=== PATIENT | female | born 1960 | race Caucasian/White ===

== ENCOUNTER 2016-06-25 05:47 | Emergency (ER) | payer OTHER ==
[2016-06-25 06:29] VITALS: BP 116/85; PULSE 74; TEMP 97.6; BMI 23.0
[2016-06-25] MEDS ORDERED: ACETAMINOPHEN/CAFFEINE/BUTALBITAL 1 TAB PO ONE (06:29)
--- NOTE | 2016-06-25 06:29 | PDOC ---
History of Present Illness - History of Present Illness Initial Comments: 06/25/16 06:30 The patient is a 56 year old female with history of migraines who presents to the ED complaining of 4 days of persistent headaches, consistent with her migraine headaches. She states she has been taking migraine medication ( including Topamax and Fiorecet) at home without relief of her pain. She reports she ran out of Fiorecet. The patient denies focal weakness or numbness or tingling. She denies nausea, vomiting, or diarrhea. She denies chest pain or shortness of breath. She denies fever or chills. <Frannie Arreguin - Last Filed: 06/25/16 06:35> - General History Source: Patient <Jerry Garay - Last Filed: 06/25/16 06:36> - General Chief Complaint: Migraine Headache Stated Complaint: MIGRAINE Time Seen by Provider: 06/25/16 06:18 Past History <Frannie Arreguin - Last Filed: 06/25/16 06:35> - Past Medical History Asthma: Yes COPD: Yes GI Disorders: Yes (IBS, Constipation) HTN: Yes Hypercholesterolemia: Yes Psychiatric Problems: Yes Suicide Attempt (Hx): No Thyroid Disease: Yes (MIGRAINES HEADACHE) - Surgical History Abdominal Surgery: Yes (EXP LAP, ADHESIONS) Cardiac Surgery: Yes - Immunization History Immunization Up to Date: Yes - Psycho/Social/Smoking Cessation Hx Anxiety: Yes Suicidal Ideation: No Smoking Status: Yes Smoking History: Current every day smoker Have you smoked in the past 12 months: Yes Number of Cigarettes Smoked Daily: 20 Information on smoking cessation initiated: No 'Breaking Loose' booklet given: 07/27/14 Hx Alcohol Use: No Drug/Substance Use Hx: No Substance Use Type: None Hx Substance Use Treatment: No <Jerry Garay - Last Filed: 06/25/16 06:36> - Past Medical History Allergies/Adverse Reactions: Allergies Allergy/AdvReac Type Severity Reaction Status Date / Time hydromorphone HCl Allergy Verified 06/25/16 06:10 [From Dilaudid] ketorolac tromethamine Allergy Itching Verified 06/25/16 06:10 [From Toradol] naproxen [From Naprosyn] Allergy Hives Verified 06/25/16 06:10 pregabalin [From Lyrica] Allergy DRUG Verified 06/25/16 06:10 INTERACTION quetiapine fumarate Allergy Hives Verified 06/25/16 06:10 [From Seroquel] trazodone Allergy Itching Verified 06/25/16 06:10 varenicline tartrate Allergy DRUG Verified 06/25/16 06:10 [From Chantix] INTERACTION Home Medications: Ambulatory Orders Clonazepam [Klonopin] 2 mg PO TID 07/02/12 Lamotrigine [Lamictal] 200 mg PO BID 07/02/12 Venlafaxine HCl ER [Effexor Xr -] 150 mg PO BID 07/02/12 Lisinopril [Prinivil] 20 mg PO DAILY 04/08/15 Polyethylene Glycol 3350 [Miralax (For Daily Use) -] 17 gm PO DAILY 04/08/15 Simvastatin [Zocor -] 40 mg PO HS 04/08/15 Aspirin [Aspirin EC] 81 mg PO DAILY 08/17/15 Aspirin [ASA -] 81 mg PO DAILY 11/17/15 Omeprazole [Prilosec] 40 mg PO DAILY 11/17/15 Topiramate [Topamax] 200 mg PO HS 11/17/15 Acetaminophen/Caffeine/Butalb [Fioricet -] 1 tab PO Q6H PRN #28 tablet MDD 4 04/18 Ondansetron [Zofran -] 4 mg PO TID PRN #14 tablet 12/14/15 Acetaminophen W/ Codeine #3 [Tylenol # 3 -] 1 tab PO Q6H PRN #5 tablet MDD 3 Butalbit/Acetamin/Caff/Codeine [Fioricet-Cod 27-198-24-30 Cap] 1 each PO BID PRN #5 capsule MDD 3 12/15/15 Codeine/Butalbital/ASA/Caffein [Fiorinal with Codeine #3 Cap] 1 each PO TID PRN #5 capsule MDD 3 12/15/15 Butalbit/Acetamin/Caff/Codeine [Fioricet-Cod 47-726-40-30 Cap] 1 each PO QID # 20 capsule MDD 4 06/25/16 Review of Systems - Review of Systems Able to Perform ROS?: Yes Comments:: 06/25/16 06:33 GENERAL/CONSTITUTIONAL: No fever or chills. No weakness. HEAD, EYES, EARS, NOSE AND THROAT: No change in vision. No ear pain or discharge. No sore throat CARDIOVASCULAR: No chest pain or shortness of breath. RESPIRATORY: No cough, wheezing, or hemoptysis. GASTROINTESTINAL: No nausea, vomiting, diarrhea or constipation. GENITOURINARY: No dysuria, frequency, or change in urination. MUSCULOSKELETAL: No joint or muscle swelling or pain. No neck or back pain. SKIN: No rash NEUROLOGIC: +Headache. No vertigo, loss of consciousness, or change in strength/ sensation. ENDOCRINE: No increased thirst. No abnormal weight change. HEMATOLOGIC/LYMPHATIC: No anemia, easy bleeding, or history of blood clots. ALLERGIC/IMMUNOLOGIC: No hives or skin allergy. <Frannie Arreguin - Last Filed: 06/25/16 06:35> *Physical Exam - Vital Signs Last Vital Signs Temp Pulse Resp BP Pulse Ox 97.6 F 74 14 116/85 100 06/25/16 06:10 06/25/16 06:10 06/25/16 06:10 06/25/16 06:10 06/25/16 06:10 - Physical Exam Comments: 06/25/16 06:34 GENERAL: Awake, alert, and fully oriented, in no acute distress HEAD: No signs of trauma EYES: PERRLA, EOMI, sclera anicteric, conjunctiva clear ENT: Auricles normal inspection, hearing grossly normal, nares patent, oropharynx clear without exudates. Moist mucosa NECK: Normal ROM, supple, no lymphadenopathy, JVD, or masses LUNGS: Breath sounds equal, clear to auscultation bilaterally. No wheezes, and no crackles HEART: Regular rate and rhythm, normal S1 and S2, no murmurs, rubs or gallops ABDOMEN: Soft, nontender, normoactive bowel sounds. No guarding, no rebound. No masses EXTREMITIES: Normal range of motion, no edema. No clubbing or cyanosis. No cords, erythema, or tenderness NEUROLOGICAL: Cranial nerves II through XII grossly intact. Normal speech, normal gait. Sensation intact throughout. Motor strength 5/5x all 4 extremities. SKIN: Warm, Dry, normal turgor, no rashes or lesions noted. <Frannie Arreguin - Luis Miguel Filed: 06/25/16 06:35> - Vital Signs Last Vital Signs Temp Pulse Resp BP Pulse Ox 97.6 F 74 14 116/85 100 06/25/16 06:10 06/25/16 06:10 06/25/16 06:10 06/25/16 06:10 06/25/16 06:10 <Jerry Garay - Last Filed: 06/25/16 06:36> Medical Decision Making - Medical Decision Making 06/25/16 06:36 Dr. Garay: The scribe's documentation has been prepared under my direction and personally reviewed by me in its entirery. I confirm that the note above accurately reflects all work, treatment, procedures, and medical decision making performed by me. <Jerry Garay - Last Filed: 06/25/16 06:36> *DC/Admit/Observation/Transfer - Attestations Scribe Attestion: 06/25/16 06:35 Documentation prepared by Frannie Arreguin, acting as medical service technician for Jerry Garay DO. <Frannie Arreguin - Last Filed: 06/25/16 06:35> - Discharge Dispostion Admit: No <Jerry Garay - Last Filed: 06/25/16 06:36> Diagnosis at time of Disposition: Headache Migraine Qualifiers: Migraine type: other Status migrainosus presence: without status migrainosus Intractability: not intractable Qualified Code(s): G43.809 - Other migraine, not intractable, without status migrainosus - Discharge Dispostion Disposition: HOME Condition at time of disposition: Stable - Prescriptions Prescriptions: Butalbit/Acetamin/Caff/Codeine [Fioricet-Cod 06-813-29-30 Cap] 1 each PO QID # 20 capsule MDD 4 - Referrals Referrals: Dominick Boykin [Primary Care Provider] - Will Stone MD [Staff Physician] - Tressa Parra MD [Staff Physician] - - Patient Instructions Printed Discharge Instructions: DI for Migraine
[2016-06-25] MEDS ORDERED: ACETAMINOPHEN/CAFFEINE/BUTALBITAL 1 TAB ONE (06:36)
== END 2016-06-25 07:03 | disposition home or self-care (01) ==
LOC: JER 05:47
DX: G43.809 Other migraine, not intractable, without status migrainosus (principal); I10 Essential (primary) hypertension; J45.909 Unspecified asthma, uncomplicated; J44.9 Chronic obstructive pulmonary disease, unspecified; E78.00 Pure hypercholesterolemia, unspecified
CPT/HCPCS: 99281-25

== ENCOUNTER 2016-06-28 02:21 | Emergency (ER) | payer OTHER ==
[2016-06-28 03:02] VITALS: BP 150/90; PULSE 89; TEMP 97.8; BMI 23.0
--- NOTE | 2016-06-28 03:38 | PDOC ---
History of Present Illness - History of Present Illness Initial Comments: 06/28/16 05:37 The patient is a 56 year old female with a PMHx of asthma, COPD, IBS, constipation, HTN, HLD, migraines who presents to the ED with a headache. Patient requested pain medication to relieve her headache. She reports she is seeing a neurologist and a sec reporting consultant. She is scheduled for endoscopy and colonoscopy in 4 days, so her neurologist told her to resolve GI issues before neuro issues. She states the headache is unbearable and that her head is pounding. The patient denies chest pain, shortness of breath, palpitations and dizziness. The patient denies fever, chills, nausea, vomiting, diarrhea, and constipation. <Saadia Oliva - Last Filed: 06/28/16 05:37> <Johnna Kay - Last Filed: 06/29/16 00:30> - General Chief Complaint: Headache Stated Complaint: HEADACHE Time Seen by Provider: 06/28/16 03:24 Past History <Saadia Oliva - Last Filed: 06/28/16 05:37> - Past Medical History Asthma: Yes COPD: Yes GI Disorders: Yes (IBS, Constipation) HTN: Yes Hypercholesterolemia: Yes Psychiatric Problems: Yes Suicide Attempt (Hx): No Thyroid Disease: Yes (MIGRAINES HEADACHE) - Surgical History Abdominal Surgery: Yes (EXP LAP, ADHESIONS) Cardiac Surgery: Yes - Immunization History Immunization Up to Date: Yes - Psycho/Social/Smoking Cessation Hx Anxiety: Yes Suicidal Ideation: No Smoking Status: Yes Smoking History: Never smoked Have you smoked in the past 12 months: No Number of Cigarettes Smoked Daily: 10 Information on smoking cessation initiated: No 'Breaking Loose' booklet given: 07/27/14 Hx Alcohol Use: No Drug/Substance Use Hx: No Substance Use Type: None Hx Substance Use Treatment: No <Johnna Kay - Last Filed: 06/29/16 00:30> - Past Medical History Allergies/Adverse Reactions: Allergies Allergy/AdvReac Type Severity Reaction Status Date / Time hydromorphone HCl Allergy Verified 06/25/16 06:10 [From Dilaudid] ketorolac tromethamine Allergy Itching Verified 06/25/16 06:10 [From Toradol] naproxen [From Naprosyn] Allergy Hives Verified 06/25/16 06:10 pregabalin [From Lyrica] Allergy DRUG Verified 06/25/16 06:10 INTERACTION quetiapine fumarate Allergy Hives Verified 06/25/16 06:10 [From Seroquel] trazodone Allergy Itching Verified 06/25/16 06:10 varenicline tartrate Allergy DRUG Verified 06/25/16 06:10 [From Chantix] INTERACTION Home Medications: Ambulatory Orders Clonazepam [Klonopin] 2 mg PO TID 07/02/12 Lamotrigine [Lamictal] 200 mg PO BID 07/02/12 Venlafaxine HCl ER [Effexor Xr -] 150 mg PO BID 07/02/12 Lisinopril [Prinivil] 20 mg PO DAILY 04/08/15 Simvastatin [Zocor -] 40 mg PO HS 04/08/15 Omeprazole [Prilosec] 40 mg PO DAILY 11/17/15 Review of Systems - Review of Systems Comments:: 06/28/16 05:37 GENERAL/CONSTITUTIONAL: No fever or chills. No weakness. HEAD, EYES, EARS, NOSE AND THROAT: No change in vision. No ear pain or discharge. No sore throat. CARDIOVASCULAR: No chest pain or shortness of breath. RESPIRATORY: No cough, wheezing, or hemoptysis. GASTROINTESTINAL: No nausea, vomiting, diarrhea or constipation. GENITOURINARY: No dysuria, frequency, or change in urination. MUSCULOSKELETAL: No joint or muscle swelling or pain. No neck or back pain. SKIN: No rash NEUROLOGIC: +headache. No vertigo, loss of consciousness, or change in strength/ sensation. ENDOCRINE: No increased thirst. No abnormal weight change. HEMATOLOGIC/LYMPHATIC: No anemia, easy bleeding, or history of blood clots. ALLERGIC/IMMUNOLOGIC: No hives or skin allergy. <Saadia Oliva - Last Filed: 06/28/16 05:37> *Physical Exam - Vital Signs Last Vital Signs Temp Pulse Resp BP Pulse Ox 97.8 F 89 20 150/90 97 06/28/16 03:01 06/28/16 03:01 06/28/16 03:01 06/28/16 03:01 06/28/16 03:01 - Physical Exam Comments: 06/28/16 05:38 GENERAL: Awake, alert, and fully oriented, in no acute distress HEAD: No signs of trauma EYES: PERRLA, EOMI, sclera anicteric, conjunctiva clear ENT: Auricles normal inspection, hearing grossly normal, nares patent, oropharynx clear without exudates. Moist mucosa NECK: Normal ROM, supple, no lymphadenopathy, JVD, or masses LUNGS: Breath sounds equal, clear to auscultation bilaterally. No wheezes, and no crackles HEART: Regular rate and rhythm, normal S1 and S2, no murmurs, rubs or gallops ABDOMEN: Soft, nontender, normoactive bowel sounds. No guarding, no rebound. No masses EXTREMITIES: Normal range of motion, no edema. No clubbing or cyanosis. No cords, erythema, or tenderness NEUROLOGICAL: Cranial nerves II through XII grossly intact. Normal speech, normal gait SKIN: Warm, Dry, normal turgor, no rashes or lesions noted. <Saadia Oliva - Last Filed: 06/28/16 05:37> - Vital Signs Last Vital Signs Temp Pulse Resp BP Pulse Ox 97.8 F 89 20 150/90 97 06/28/16 03:01 06/28/16 03:01 06/28/16 03:01 06/28/16 03:01 06/28/16 03:01 <Johnna Kay - Last Filed: 06/29/16 00:30> Medical Decision Making - Medical Decision Making 06/29/16 00:30 Pt comes requesting percocet. I gave her 12 pills in a prescription. Exam is normal, but she demands that she is in pain. <Johnna Kay - Last Filed: 06/29/16 00:30> *DC/Admit/Observation/Transfer - Attestations Scribe Attestion: 06/28/16 05:38 Documentation prepared by Saadia Oliva, acting as medical appliance maker for Johnna Kay MD. <Saadia Oliva - Last Filed: 06/28/16 05:37> - Discharge Dispostion Admit: No <Johnna Kay - Last Filed: 06/29/16 00:30> Diagnosis at time of Disposition: Headache, chronic daily - Discharge Dispostion Disposition: HOME Condition at time of disposition: Stable - Referrals Referrals: Dominick Boykin [Primary Care Provider] - - Patient Instructions Printed Discharge Instructions: DI for Chronic Pain -- Adult
== END 2016-06-28 03:55 | disposition home or self-care (01) ==
LOC: JER 02:21
DX: R51 Headache (principal); I10 Essential (primary) hypertension; E78.00 Pure hypercholesterolemia, unspecified; J44.9 Chronic obstructive pulmonary disease, unspecified; J45.909 Unspecified asthma, uncomplicated; K58.9 Irritable bowel syndrome, unspecified
CPT/HCPCS: 99282-25

== ENCOUNTER 2016-10-19 13:23 | Emergency (ER) | payer OTHER ==
[2016-10-19 13:40] VITALS: BP 114/65; PULSE 102; TEMP 97.8; BMI 23.1
--- NOTE | 2016-10-19 15:00 | PDOC ---
History of Present Illness - General Chief Complaint: Migraine Headache Stated Complaint: MIGRAINE Time Seen by Provider: 10/19/16 14:36 History Source: Patient Exam Limitations: No Limitations - History of Present Illness Initial Comments: 10/19/16 15:26 Patient well known to this emergency Department with complaints of severe headache pain. Patient suffers from chronic migraines, is on a number of medications including narcotic medications. States is treated by headache specialist at [facility] with her primary physician being . Questing oxycodone 7.5 mg tablets as she says Dr. Boykin treats her #30 tablets on a monthly basis. Timing/Duration: reports: waxing and waning Severity: Yes: moderate Past History - Travel Traveled outside of the country in the last 30 days: No Close contact w/someone who was outside of country & ill: No - Past Medical History Allergies/Adverse Reactions: Allergies Allergy/AdvReac Type Severity Reaction Status Date / Time hydromorphone HCl Allergy Verified 10/19/16 13:31 [From Dilaudid] ketorolac tromethamine Allergy Itching Verified 10/19/16 13:31 [From Toradol] naproxen [From Naprosyn] Allergy Hives Verified 10/19/16 13:31 pregabalin [From Lyrica] Allergy DRUG Verified 10/19/16 13:31 INTERACTION quetiapine fumarate Allergy Hives Verified 10/19/16 13:31 [From Seroquel] trazodone Allergy Itching Verified 10/19/16 13:31 varenicline tartrate Allergy DRUG Verified 10/19/16 13:31 [From Chantix] INTERACTION Home Medications: Ambulatory Orders Clonazepam [Klonopin] 2 mg PO TID 07/02/12 Lamotrigine [Lamictal] 200 mg PO BID 07/02/12 Venlafaxine HCl ER [Effexor Xr -] 150 mg PO BID 07/02/12 Lisinopril [Prinivil] 20 mg PO DAILY 04/08/15 Simvastatin [Zocor -] 40 mg PO HS 04/08/15 Omeprazole [Prilosec] 40 mg PO DAILY 11/17/15 Asthma: Yes COPD: Yes GI Disorders: Yes (IBS, Constipation) HTN: Yes Hypercholesterolemia: Yes Psychiatric Problems: Yes Suicide Attempt (Hx): No Thyroid Disease: Yes (MIGRAINES HEADACHE) - Surgical History Abdominal Surgery: Yes (EXP LAP, ADHESIONS) Cardiac Surgery: Yes - Immunization History Immunization Up to Date: Yes - Psycho/Social/Smoking Cessation Hx Anxiety: Yes Suicidal Ideation: No Smoking Status: Yes Smoking History: Current every day smoker Have you smoked in the past 12 months: No Number of Cigarettes Smoked Daily: 20 Information on smoking cessation initiated: No 'Breaking Loose' booklet given: 07/27/14 Hx Alcohol Use: No Drug/Substance Use Hx: No Substance Use Type: None Hx Substance Use Treatment: No Neuro Specific PMHX - Complaint Specific PMHX Glaucoma: No Migraine: Yes Review of Systems - Review of Systems Able to Perform ROS?: Yes Is the patient limited Swiss proficient: Yes Constitutional: Yes: Symptoms Reported, See HPI, Malaise. No: Fever HEENTM: Yes: See HPI Respiratory: Yes: See HPI. No: Symptoms reported ABD/GI: No: Symptoms Reported Musculoskeletal: No: Symptoms Reported Integumentary: Yes: Symptoms Reported Neurological: Yes: Symptoms reported, See HPI, Headache, Numbness Psychiatric: Yes: Depression All Other Systems: Reviewed and Negative *Physical Exam - Vital Signs Last Vital Signs Temp Pulse Resp BP Pulse Ox 97.8 F 102 H 20 114/65 96 10/19/16 13:24 10/19/16 13:24 10/19/16 13:24 10/19/16 13:24 10/19/16 13:24 - Physical Exam Comments: 10/19/16 15:01 General Appearance: Yes: Nourished, Appropriately Dressed, Mild Distress HEENT: positive: GABRIELA, Normal ENT Inspection, TMs Normal, Pharynx Normal Neck: positive: Supple. negative: Tender, Lymphadenopathy (R), Lymphadenopathy (L) Respiratory/Chest: positive: Lungs Clear, Normal Breath Sounds Cardiovascular: positive: Regular Rate Gastrointestinal/Abdominal: positive: Normal Bowel Sounds, Soft. 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 Agreed to give 2 tablets of Percocet today *DC/Admit/Observation/Transfer Diagnosis at time of Disposition: Chronic headache Qualifiers: Headache type: unspecified Intractability: not intractable Qualified Code(s): R51 - Headache - Discharge Dispostion Disposition: HOME Condition at time of disposition: Stable Admit: No - Referrals Referrals: Dominick Boykin [Primary Care Provider] - Will Stone MD [Staff Physician] - - Patient Instructions Printed Discharge Instructions: Migraine -- Adult Additional Instructions: Rest, drink lots of fluids: Teas, water, soups, hydrate well Steamy showers Avoid contact with others until fevers and cough resolved Lots of handwashing and good hygiene Continue [id number] medications for symptomatic relief Tylenol for fever and pain Use prescribed headache meds Followup with private physician in one to 2 days as needed Return to emergency department for worsened symptoms, fevers, dehydration - Post Discharge Activity Work/School Note: Back to Work
[2016-10-19] MEDS ORDERED: OXYCODONE/APAP 5/325MG COMBO TABLET ONE (15:04)
== END 2016-10-19 15:15 | disposition home or self-care (01) ==
LOC: JER 13:23 → JERFT 13:23
DX: G43.909 Migraine, unspecified, not intractable, without status migrainosus (principal); J44.9 Chronic obstructive pulmonary disease, unspecified; I10 Essential (primary) hypertension; E78.00 Pure hypercholesterolemia, unspecified; J45.909 Unspecified asthma, uncomplicated; F17.210 Nicotine dependence, cigarettes, uncomplicated
CPT/HCPCS: 99281-25

== ENCOUNTER → 2016-11-09 | Emergency (ER) | payer OTHER ==
[~2016-11-09] MED LIST: ACETAMINOPHEN 1000 MG/100 ML VIAL (NON FORMULARY) IVPB ONE; ONDANSETRON 4 MG/2 ML VIAL IVPUSH ONE; ONDANSETRON 4 MG/2 ML VIAL ONE
[2016-11-09 01:35] VITALS: BP 104/70; PULSE 72; TEMP 97.6; BMI 23.9
[2016-11-09 02:05] LABS: URINE APPEARANCE CLEAR; URINE BILIRUBIN NEGATIVE (NEGATIVE); URINE BLOOD NEGATIVE (NEGATIVE); URINE COLOR STRAW; URINE GLUCOSE (UA) NEGATIVE (NEGATIVE); URINE KETONE NEGATIVE (NEGATIVE); URINE LEUK ESTERASE NEGATIVE (NEGATIVE); URINE NITRITE NEGATIVE (NEGATIVE); URINE PROTEIN NEGATIVE (NEGATIVE); URINE UROBILINOGEN NEGATIVE E.U./dl (0.2-1.0)
[2016-11-09 02:22] LABS: BASOPHIL 0.8 % (0-2.0); EOSINOPHIL 1.5 % (0-4.5); MCH 28.5 pg (25.7-33.7); MCHC 32.6 g/dl (32.0-36.0); MEAN CELL VOLUME 87.5 fl (80-96); MEAN PLT VOLUME 8.9 fl (7.5-11.1); NEUTROPHILS 45.3 % (42.8-82.8); PLATELET COUNT 250 K/MM3 (134-434); RDW 13.2 % (11.6-15.6); WHITE BLOOD COUNT 5.9 K/mm3 (4.0-10.0)
[2016-11-09 03:06] LABS: ALBUMIN 3.6 g/dl (3.4-5.0); ANION GAP 7 (8-16); CALCIUM 9.1 mg/dL (8.5-10.1); CO2 25 mmol/L (21-32); CREATININE 0.7 mg/dL (0.55-1.02); GLUCOSE,RANDOM 85 mg/dL (74-106); SGPT/ALT 19 U/L (12-78)
[2016-11-09 03:07] LABS: ALK PHOS 148 U/L (45-117); BILIRUBIN,TOTAL 0.2 mg/dL (0.2-1.0); TOT PROT 6.9 g/dl (6.4-8.2)
[2016-11-09 03:10] LABS: SGOT/AST 15 U/L (15-37)
--- NOTE | 2016-11-09 03:10 | PDOC ---
History of Present Illness - General Chief Complaint: Pain Stated Complaint: ABDOMINAL PAIN Time Seen by Provider: 11/09/16 01:57 - History of Present Illness Initial Comments: 11/09/16 02:57 CHIEF COMPLAINT: abdominal pain HISTORY OF PRESENT ILLNESS: 56 yo F with hx of presents to ED with abdominal pain and nausea. Patient states the pain is so bad that she cannot walk, but prior to exam she was seen ambulating to bathroom without evidence of pain. Patient states "she usually gets Dilaudid or morphine" for this pain. No recent travel or sick contacts. PAST MEDICAL HISTORY: Denies past medical history FAMILY HISTORY: Denies SOCIAL HISTORY:Denies tobacco, alcohol, illicit drug use. SURGICAL HISTORY: Denies ALLERGIES: No known drug allergies REVIEW OF SYSTEMS General/Constitutional: Denies fever or chills. Cardiovascular: Denies chest pain or shortness of breath. Respiratory: Denies cough, wheezing, or hemoptysis. Gastrointestinal: Abdominal pain, nausea. Denies vomiting, diarrhea or constipation. Genitourinary: Denies dysuria, frequency, or change in urination. Musculoskeletal: Denies joint or muscle swelling or pain. Denies neck or back pain. Skin and breasts: Denies rash or easy bruising. PHYSICAL EXAM General Appearance: Well-appearing, appropriately dressed. No apparent distress. HEENT: EOMI, PERRLA Respiratory/Chest: Lungs CTAB. Cardiovascular: RRR. S1, S2. Gastrointestinal/Abdominal: Generalized tenderness on palpation. Normal bowel sounds. Abdomen soft, non-distended. No tenderness or rebound tenderness. No organomegaly, pulsatile mass, guarding, hernia, hepatomegaly, splenomegaly. Integumentary: Appropriate color, dry, warm. 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 Fully oriented, alert. Appropriate mood/affect. Motor strength 5/5. No appreciable EOM palsy, facial droop or sensory deficit. Past History - Past Medical History Allergies/Adverse Reactions: Allergies Allergy/AdvReac Type Severity Reaction Status Date / Time hydromorphone HCl Allergy Verified 11/09/16 01:54 [From Dilaudid] ketorolac tromethamine Allergy Itching Verified 11/09/16 01:54 [From Toradol] naproxen [From Naprosyn] Allergy Hives Verified 11/09/16 01:54 pregabalin [From Lyrica] Allergy DRUG Verified 11/09/16 01:54 INTERACTION quetiapine fumarate Allergy Hives Verified 11/09/16 01:54 [From Seroquel] trazodone Allergy Itching Verified 11/09/16 01:54 varenicline tartrate Allergy DRUG Verified 11/09/16 01:54 [From Chantix] INTERACTION Home Medications: Ambulatory Orders Clonazepam [Klonopin] 2 mg PO TID 07/02/12 Lamotrigine [Lamictal] 200 mg PO BID 07/02/12 Venlafaxine HCl ER [Effexor Xr -] 150 mg PO BID 07/02/12 Lisinopril [Prinivil] 20 mg PO DAILY 04/08/15 Simvastatin [Zocor -] 40 mg PO HS 04/08/15 Omeprazole [Prilosec] 40 mg PO DAILY 11/17/15 Oxycodone HCl/Acetaminophen [Percocet 5-325 mg Tablet] 1 tab PO DAILY 11/09/16 Asthma: Yes COPD: Yes GI Disorders: Yes (IBS, Constipation) HTN: Yes Hypercholesterolemia: Yes Psychiatric Problems: Yes Suicide Attempt (Hx): No Thyroid Disease: Yes (MIGRAINES HEADACHE) - Surgical History Abdominal Surgery: Yes (EXP LAP, ADHESIONS) Cardiac Surgery: Yes - Immunization History Immunization Up to Date: Yes - Psycho/Social/Smoking Cessation Hx Anxiety: Yes Suicidal Ideation: No Smoking Status: Yes Smoking History: Unknown if ever smoked Have you smoked in the past 12 months: No Number of Cigarettes Smoked Daily: 10 Information on smoking cessation initiated: No 'Breaking Loose' booklet given: 07/27/14 Hx Alcohol Use: No Drug/Substance Use Hx: No Substance Use Type: None Hx Substance Use Treatment: No Abd/GI Specific PMHX - Complaint Specific PMHX GERD: No GI Ulcer Disease: No *Physical Exam - Vital Signs Last Vital Signs Temp Pulse Resp BP Pulse Ox 97.6 F 72 14 104/70 98 11/09/16 01:33 11/09/16 01:33 11/09/16 01:33 11/09/16 01:33 11/09/16 01:42 ED Treatment Course - LABORATORY CBC & Chemistry Diagram: 11/09/16 02:13 11/09/16 02:03 - ADDITIONAL ORDERS Additional order review: Laboratory Results 11/09/16 11/09/16 02:13 01:45 WBC 5.9 RBC 4.83 Hgb 13.8 Hct 42.2 MCV 87.5 MCH 28.5 MCHC 32.6 RDW 13.2 Plt Count 250 MPV 8.9 Neutrophils % 45.3 D Lymphocytes % 45.7 H D Monocytes % 6.7 Eosinophils % 1.5 Basophils % 0.8 Urine Color Straw Urine Appearance Clear Urine pH 6.0 Urine Protein Negative Urine Glucose (UA) Negative Urine Ketones Negative Urine Blood Negative Urine Nitrite Negative Urine Bilirubin Negative Urine Urobilinogen Negative Ur Leukocyte Esterase Negative 11/09/16 02:13 RBC 4.83 MCV 87.5 MCHC 32.6 RDW 13.2 MPV 8.9 Neutrophils % 45.3 D Lymphocytes % 45.7 H D Monocytes % 6.7 Eosinophils % 1.5 Basophils % 0.8 Medical Decision Making - Medical Decision Making 56 yo F with hx of presents to ED with abdominal pain and nausea. -CBc, CMP, lipase -UA, UCx Labs unremarkable. Patient exhibiting drug-seeking behavior, as she persistently requested Dilaudid or morphine to "take the edge off." [facility] [employer] referenced. Patient currently has multiple scripts for narcotics including Dilley, will give Tylenol IVPB. Patient became agitated when told she would be getting Tylenol. When patient was advised she would not be getting Dilaudid, she became verbally abusive to myself and other staff with threatening behavior. Patient self-removed IV and eloped after being told she would not be receiving any Dilaudid or morphine in the ER. *DC/Admit/Observation/Transfer Diagnosis at time of Disposition: Opiate dependence Qualifiers: Substance use status: with unspecified opioid-induced disorder Qualified Code(s ): F11.29 - Opioid dependence with unspecified opioid-induced disorder - Discharge Dispostion Disposition: ELOPED - Referrals Referrals: Dominick Boykin [Primary Care Provider] -
== END | disposition left against medical advice (07) ==
LOC: JER 01:09
DX: Z53.21 Procedure and treatment not carried out due to patient leaving prior to being seen by health care provider (principal)
CPT/HCPCS: 36415; 80053; 81003; 83690; 85025; 99282-25

== ENCOUNTER 2019-07-14 20:15 | Inpatient (IN) | payer OTHER ==
--- NOTE | 2019-07-14 20:24 | PDOC ---
Rapid Medical Evaluation Medical Evaluation: Allergies Allergy/AdvReac Type Severity Reaction Status Date / Time hydromorphone HCl Allergy Verified 11/09/16 01:54 [From Dilaudid] ketorolac tromethamine Allergy Itching Verified 11/09/16 01:54 [From Toradol] naproxen [From Naprosyn] Allergy Hives Verified 11/09/16 01:54 pregabalin [From Lyrica] Allergy DRUG Verified 11/09/16 01:54 INTERACTION quetiapine fumarate Allergy Hives Verified 11/09/16 01:54 [From Seroquel] trazodone Allergy Itching Verified 11/09/16 01:54 varenicline tartrate Allergy DRUG Verified 11/09/16 01:54 [From Chantix] INTERACTION 07/14/19 20:20 Pt c/o: lower abd pain, urunary urgency, hx complicated uti pt on brief exam: lower abd tenderness, mild cva tenderness, vss pt ordered for: ua uc x, comp cbc Pt to proceed to the ED Discharge Disposition - Diagnosis Abdominal pain - Referrals - Patient Instructions - Post Discharge Activity
--- NOTE | 2019-07-14 21:37 | PDOC ---
History of Present Illness - General Chief Complaint: Pain, Acute Stated Complaint: UTI Time Seen by Provider: 07/14/19 21:35 History Source: Patient - History of Present Illness Initial Comments: 07/14/19 21:57 Ms. Kilpatrick is a 59 y/o woman w/hx HTN, HLD, depression, prior opiate use disorder p/w worsening flank pain, suprapubic pain, and dysuria. She reports being seen at [facility] on 06/11/2019 and found to have UTI as well as a CT scan indicative of 3mm L renal stone at that time. She was started on ciprofloxacin as well as tamsulosin, but her dysuria persisted despite a second course of cipro after completion of the first, started by her PCP. She reports chills last night, no measured fevers at home. She presents today as she continues to have dysuria and her pain has worsened, 9/10, achine pain, localized to her bilateral flanks and suprapubic region. She reports taking 325mg Acetaminophen at approx 1400 without improvement of pain. She denies nausea, vomiting, chest pain, shortness of breath, weakness, confusion. Past History - Past Medical History Allergies/Adverse Reactions: Allergies Allergy/AdvReac Type Severity Reaction Status Date / Time hydromorphone HCl Allergy Verified 11/09/16 01:54 [From Dilaudid] ketorolac tromethamine Allergy Itching Verified 11/09/16 01:54 [From Toradol] naproxen [From Naprosyn] Allergy Hives Verified 11/09/16 01:54 pregabalin [From Lyrica] Allergy DRUG Verified 11/09/16 01:54 INTERACTION quetiapine fumarate Allergy Hives Verified 11/09/16 01:54 [From Seroquel] trazodone Allergy Itching Verified 11/09/16 01:54 varenicline tartrate Allergy DRUG Verified 11/09/16 01:54 [From Chantix] INTERACTION Home Medications: Ambulatory Orders Clonazepam [Klonopin] 2 mg PO TID 07/02/12 Lamotrigine [Lamictal] 200 mg PO BID 07/02/12 Venlafaxine HCl ER [Effexor Xr -] 150 mg PO BID 07/02/12 Lisinopril [Prinivil] 20 mg PO DAILY 04/08/15 Simvastatin [Zocor -] 40 mg PO HS 04/08/15 Omeprazole [Prilosec] 40 mg PO DAILY 11/17/15 Oxycodone HCl/Acetaminophen [Percocet 5-325 mg Tablet] 1 tab PO DAILY 11/09/16 Tamsulosin HCl [Flomax] 0.4 mg PO DAILY 07/14/19 Asthma: Yes COPD: Yes GI Disorders: Yes (IBS, Constipation) HTN: Yes Hypercholesterolemia: Yes Psychiatric Problems: Yes Thyroid Disease: Yes (MIGRAINES HEADACHE) - Surgical History Abdominal Surgery: Yes (EXP LAP, ADHESIONS) Cardiac Surgery: Yes - Immunization History Immunization Up to Date: Yes - Psycho Social/Smoking Cessation Hx Smoking Status: Yes Smoking History: Current every day smoker Have you smoked in the past 12 months: Yes Number of Cigarettes Smoked Daily: 10 Information on smoking cessation initiated: No 'Breaking Loose' booklet given: 07/27/14 Hx Alcohol Use: No Drug/Substance Use Hx: No Substance Use Type: None Hx Substance Use Treatment: No Review of Systems - Review of Systems Able to Perform ROS?: Yes Comments:: 07/14/19 22:17 GENERAL/CONSTITUTIONAL: Chills. No fever. No weakness. HEAD, EYES, EARS, NOSE AND THROAT: No change in vision. No ear pain or dischar ge. No sore throat. CARDIOVASCULAR: No chest pain or shortness of breath RESPIRATORY: No cough, wheezing, or hemoptysis. GASTROINTESTINAL: No nausea, vomiting, diarrhea or constipation. GENITOURINARY: Dysuria. No frequency, or change in urination. MUSCULOSKELETAL: Flank pain. No joint or muscle swelling or pain. No neck pain. SKIN: No rash NEUROLOGIC: No headache, vertigo, loss of consciousness, or change in strength/sensation. ENDOCRINE: No increased thirst. No abnormal weight change HEMATOLOGIC/LYMPHATIC: No anemia, easy bleeding, or history of blood clots. ALLERGIC/IMMUNOLOGIC: No hives or skin allergy. *Physical Exam - Vital Signs Last Vital Signs Temp Pulse Resp BP Pulse Ox 98.5 F 96 H 19 151/86 95 07/14/19 20:17 07/14/19 20:17 07/14/19 20:17 07/14/19 20:17 07/14/19 20:17 - Physical Exam 07/14/19 22:18 GENERAL: Awake, alert, and fully oriented, in no acute distress HEAD: No signs of trauma, normocephalic, atraumatic EYES: PERRLA, EOMI, sclera anicteric, conjunctiva clear ENT: Auricles normal inspection, hearing grossly normal, nares patent, oropharynx clear without exudates. Moist mucosa NECK: Normal ROM, supple, no lymphadenopathy, JVD, or masses LUNGS: No distress, speaks full sentences, clear to auscultation bilaterally HEART: Regular rate and rhythm, normal S1 and S2, no murmurs, rubs or gallops, peripheral pulses normal and equal bilaterally. ABDOMEN: Diffuse mild tenderness, most severe in LLQ and suprapubic region. L CVA tenderness. Soft, normoactive bowel sounds. No guarding, no rebound. No masses EXTREMITIES : Normal inspection, Normal range of motion, no edema. No clubbing or cyanosis NEUROLOGICAL: Cranial nerves II through XII grossly intact. Normal speech, normal gait, no focal sensorimotor deficits SKIN: Warm, Dry, normal turgor, no rashes or lesions noted ED Treatment Course - LABORATORY CBC & Chemistry Diagram: 07/14/19 21:20 07/14/19 21:20 Medical Decision Making - Medical Decision Making 07/14/19 22:24 59F w/hx HTN, HLD, renal stone and UTI on 06/23 p/w ongoing dysuria, flank pain and CVA tenderness on exam, and UTI tx failure on multiple courses abx concerning for impacted stone vs ascending infection. Ddx includes renal colic, abx resistant UTI. Plan: CBC CMP UA Urine culture CT spiral renal stone to eval for impacted/infected stone Ofirmev 1g IV Morphine 4mg IV Blood cultures x2 EKG CXR 1L NS IV Dispo: Admit 07/14/19 23:51 CT abdomen pelvis - non-obstructing stone in renal pelvis, no hydronephrosis. Plan for admission for pyelonephritis/failure of outpatient treatment. Case discussed with admitting team. Patient admitted to Dr. Figueroa. Discharge - Discharge Information Problems reviewed: Yes Clinical Impression/Diagnosis: Cystitis, Renal stone, Pyelonephritis Condition: Stable - Admission Yes - Follow up/Referral - Patient Discharge Instructions - Post Discharge Activity
[2019-07-14 21:50] LABS: EPI CELLS 4 /HPF (0-5/HPF); HYALINE CASTS 1 /lpf (0-8); URINE APPEARANCE CLEAR; URINE BACTERIA 11 /hpf (NEGATIVE); URINE BILIRUBIN 2+ (NEGATIVE); URINE COLOR ORANGE; URINE GLUCOSE (UA) NEGATIVE (NEGATIVE); URINE KETONE NEGATIVE (NEGATIVE); URINE LEUK ESTERASE 1+ (NEGATIVE); URINE NITRITE POSITIVE (NEGATIVE); URINE PROTEIN TRACE (NEGATIVE); URINE WBC 11 /hpf (0-5)
[2019-07-14] MEDS ORDERED: SODIUM CHLORIDE 0.9% 1000 ML INFUS.BAG IV ONE (21:53)
[2019-07-14] MEDS ORDERED: ACETAMINOPHEN 1000 MG/100 ML VIAL (NON FORMULARY) IVPB ONE (21:54)
[2019-07-14] MEDS ORDERED: CEFTRIAXONE 1,000 MG in DEXTROSE 5%-WATER - 50 ML IVPB ONE (21:54)
[2019-07-14 21:58] LABS: BASO % 0.5 % (0-2.0); EOS % 1.7 % (0-4.5); HEMATOCRIT 42.2 % (32.4-45.2); LYMPH % 41.4 % (8-40); MCH 29.4 pg (25.7-33.7); MCHC 33.1 g/dl (32.0-36.0); MEAN CELL VOLUME 88.8 fl (80-96); MEAN PLT VOLUME 9.2 fl (7.5-11.1); MONO % 9.1 % (3.8-10.2); NEUT % 47.3 % (42.8-82.8); PLATELET COUNT 259 K/MM3 (134-434); RBC 4.75 M/mm3 (3.60-5.2); RDW 14.1 % (11.6-15.6); WHITE BLOOD COUNT 7.1 K/mm3 (4.0-10.0)
[2019-07-14] MEDS ORDERED: morphine CARPU-JECT 4 MG/1 ML DISP.SYRIN IVPUSH ONE (22:05)
[2019-07-14] MEDS ORDERED: CEFTRIAXONE 1 GM/50 ML BAG ONE (22:06)
[2019-07-14] MEDS ORDERED: ACETAMINOPHEN INJECTION 100 ML IVPB ONE (22:06)
[2019-07-14 22:13] LABS: ALBUMIN 3.6 g/dl (3.4-5.0); ALK PHOS 145 U/L (45-117); ANION GAP 5 MMOL/L (8-16); BILIRUBIN,TOTAL < 0.1 mg/dL (0.2-1); BLOOD UREA NITROGEN 14.3 mg/dL (7-18); CALCIUM 9.5 mg/dL (8.5-10.1); CHLORIDE 107 mmol/L (98-107); CO2 29 mmol/L (21-32); CREATININE 0.6 mg/dL (0.55-1.3); GLUCOSE,RANDOM 115 mg/dL (74-106); POTASSIUM 4.3 mmol/L (3.5-5.1); SGOT/AST 13 U/L (15-37); SGPT/ALT 22 U/L (13-61); SODIUM 141 mmol/L (136-145); TOT PROT 6.5 g/dl (6.4-8.2)
[2019-07-14] MEDS ORDERED: morphine SULFATE 4 MG/ML VIAL ONE (22:19)
--- NOTE | 2019-07-14 22:54 | PDOC ---
Documentation entered by Elham Dueñas SCRIBE, acting as scribe for Yisel Law DO. Yisel Law DO: This documentation has been prepared by the thuyibe, Elham Dueñas SCRIBE, under my direction and personally reviewed by me in its entirety. I confirm that the documentation accurately reflects all work, treatment, procedures, and medical decision making performed by me. Attending Attestation - Resident Resident Name: Chris Pinedo - ED Attending Attestation I have performed the following: I have examined & evaluated the patient, The case was reviewed & discussed with the resident, I agree w/resident's findings & plan, Exceptions are as noted - HPI HPI: 07/14/19 22:55 The patient is a 59-year-old female with a past medical history significant for HTN, HLD, and depression who presents to the emergency department with flank pain and lower abdominal pain. The patient presents with persistent bilateral flank pain that radiates down the lower abdominal region. The patient reports the pain worsened and decided to be evaluated. The patient reports associated symptoms of subjective fever and chills yesterday denies nausea or vomiting. The patient reports taking Tylenol for the symptoms without relief. The patient reports on June 11 she was seen at [facility] for supra abdominal and flank pain. The patient was diagnosed with a UTI, and her CTA showed a 3mm nonobstructive stone in the kidney. The patient reports she was given Cipro and tamsulosin. The patient reports following up with PCP, who referred the patient to the ER for an ultrasound blast, denies following up at the ER. The patient reports making an appointment with a urologist (Dr. Jacome and Dr. Matos), but they are for the end of this month. - Physicial Exam PE: 07/14/19 23:01 GENERAL: Awake, alert, and fully oriented, in no acute distress HEAD: No signs of trauma EYES: PERRLA, EOMI, sclera anicteric, conjunctiva clear ENT: Auricles normal inspection, hearing grossly normal, nares patent, oropharynx clear without exudates. Moist mucosa NECK: Normal ROM, supple, no lymphadenopathy, JVD, or masses LUNGS: Breath sounds equal, clear to auscultation bilaterally. No wheezes, and no crackles HEART: Regular rate and rhythm. ABDOMEN: Soft, tenderness to suprapubic, left lower quadrant, left flank and left CVA. EXTREMITIES: Normal range of motion, no edema. No clubbing or cyanosis. No cords, erythema, or tenderness NEUROLOGICAL: Cranial nerves II through XII grossly intact. Normal speech, normal gait SKIN: Warm, Dry, normal turgor, no rashes or lesions noted. - Medical Decision Making 07/14/19 22:35 I, Dr. Yisel Law, DO, attest that this document has been prepared under my direction and personally reviewed by me in its entirety. I further attest, that it accurately reflects all work, treatment, procedures and medical decision-making performed by me. a/p: 59yo female with L flank pain that has been worsening x 1m -pt has been on cipro and was dx with a uti and renal stone at [place] in June -pt states dysuria and worsening flank pain -states subjective fevers/chills last night -pt denies n/v/d- but states decreased po intake recently -pt denies cp -concern for persistent uti, pyelo, or infected stone -will send labs, start iv abx, will send cultures, spiral ct -will monitor and reassess 07/14/19 22:54 pt with uti no elevated wbc cr normal 07/15/19 00:13 resident discussed the case with sheila who accepts pt to service pt with pyelo that failed outpt therapy Heart Score/ECG Review - ECG Intrepretation Comment:: 07/15/19 00:13 sinus at 76, nl axis, nl interval, no acute st/t wave findings Discharge - Discharge Information Problems reviewed: Yes Clinical Impression/Diagnosis: Cystitis, Renal stone, Pyelonephritis Condition: Fair - Admission Yes - Follow up/Referral - Patient Discharge Instructions - Post Discharge Activity
[2019-07-14] MEDS ORDERED: KETOROLAC TROMETHAMINE 15 MG/ML VIAL IVPUSH PRN (23:43)
[2019-07-14] MEDS ORDERED: ACETAMINOPHEN 325 MG TABLET (FP) PO PRN (23:48)
--- NOTE | 2019-07-14 23:50 | HP ---
CHIEF COMPLAINT: dysuria, suprapubic pain PCP: Dr. Boykin HISTORY OF PRESENT ILLNESS: 59F w/ pmhx of HTN/HLD, COPD, IBS, depression presents to the ED for complaints of 1 month hx of dysuria, suprapubic pain, and flank pain. Pt says she was hospitalized at [facility] on 06/11/19 after which she was prescribed Ciprofloxacin and Tamsulosin and advised to go to her PCP. At that time, she had a CTA done that showed a 3 mm non-obstructed stone. She then completed another tx of Cipro as an outpatient, however despite all antibiotic therapies, her symptoms of dysuria, flank pain and suprapubic pain persisted. She saw her PCP this week who then prescribed her Amoxicillin and advised her to go to the ED to get an "ultrasound blast". Additionally, she admits to urinary retention as well as bilateral flank pain, L > R. Last night she complained of fevers, and today she had chills all day. Denies any vaginal discharge, itchiness. Also denies any sexual contact for the past 6 years as her as she states her 6 years ago. Pt has not followed up with urologist in 4 years. ER course was notable for: (1) VS wnl, CBC wnl, BMP wnl, Alk P 145. UA showed +nitrite, 2+ bilirubin, 1+LE, WBC 11 (2) IV Ceftriaxone, Morphine, IV Tylenol given (3) CTAP (IOC read) showed no obstructive uropathy, non-obstructing L renal parenchymal stone; liver appears hyperdense Recent Travel: Denies PAST MEDICAL HISTORY: As per HPI PAST SURGICAL HISTORY: C-s Lysis of adhesions FAMILY HISTORY: Maternal aunt- DM/PVD Maternal grandmother- breast ca Paternal grandfather- CAD Social History: Smokin cig/day since 15 years old Alcohol: Denies Drugs: Denies Allergies hydromorphone HCl [From Dilaudid] Allergy (Verified 11/09/16 01:54) ketorolac tromethamine [From Toradol] Allergy (Verified 11/09/16 01:54) Itching naproxen [From Naprosyn] Allergy (Verified 11/09/16 01:54) Hives pregabalin [From Lyrica] Allergy (Verified 07/09/17 01:54) DRUG INTERACTION TAKES EFFEXOR quetiapine fumarate [From Seroquel] Allergy (Verified 11/09/16 01:54) Hives trazodone Allergy (Verified 11/09/16 01:54) Itching varenicline tartrate [From Chantix] Allergy (Verified 11/09/16 01:54) DRUG INTERACTION TAKES EFFEXOR HOME MEDICATIONS: Home Medications - RECONCILED Medication Instructions Recorded Clonazepam [Klonopin] 2 mg PO TID 07/02/12 Lamotrigine [Lamictal] 200 mg PO BID 07/02/12 Venlafaxine HCl ER [Effexor Xr -] 150 mg PO BID 07/02/12 Lisinopril [Prinivil] 20 mg PO DAILY 04/08/15 Simvastatin [Zocor -] 40 mg PO HS 04/08/15 Omeprazole [Prilosec] 40 mg PO DAILY 11/17/15 Oxycodone HCl/Acetaminophen 1 tab PO DAILY 11/09/16 [Percocet 5-325 mg Tablet] Tamsulosin HCl [Flomax] 0.4 mg PO DAILY 07/14/19 REVIEW OF SYSTEMS CONSTITUTIONAL: fever, chills Absent: diaphoresis, generalized weakness, malaise, loss of appetite, weight change HEENT: Absent: rhinorrhea, nasal congestion, throat pain, throat swelling, difficulty swallowing, mouth swelling, ear pain, eye pain, visual changes CARDIOVASCULAR: Absent: chest pain, syncope, palpitations, irregular heart rate, lightheadedness, peripheral edema RESPIRATORY: Absent: cough, shortness of breath, dyspnea with exertion, orthopnea, wheezing, stridor, hemoptysis GASTROINTESTINAL: Absent: abdominal pain, abdominal distension, nausea, vomiting, diarrhea, constipation, melena, hematochezia GENITOURINARY: dysuria, hesitancy, hematuria, flank pain Absent: , frequency, urgency, genital pain MUSCULOSKELETAL: Absent: myalgia, arthralgia, joint swelling, back pain, neck pain SKIN: Absent: rash, itching, pallor HEMATOLOGIC/IMMUNOLOGIC: Absent: easy bleeding, easy bruising, lymphadenopathy, frequent infections ENDOCRINE: Absent: unexplained weight gain, unexplained weight loss, heat intolerance, cold intolerance NEUROLOGIC: Absent: headache, focal weakness or paresthesias, dizziness, unsteady gait, seizure, mental status changes, bladder or bowel incontinence PSYCHIATRIC: Absent: anxiety, depression, suicidal or homicidal ideation, hallucinations. PHYSICAL EXAMINATION Vital Signs - 24 hr 07/14/19 20:17 Temperature 98.5 F Pulse Rate 96 H Respiratory 19 Rate Blood Pressure 151/86 O2 Sat by Pulse 95 Oximetry (%) GENERAL: Pleasant, well-appearing female, NAD. HEENT: AT/NC. EOMI. MMM. NECK: Normal range of motion, supple without lymphadenopathy, JVD, or masses. LUNGS: Scattered wheezes throughout. Symmetric chest rise. HEART: RRR. Normal S1, S2. No murmurs noted. ABDOMEN: Soft, nondistended. Mildly tender to palpation. No rebound tenderness or guarding. : Mild suprapubic tenderness. MUSCULOSKELETAL: Normal range of motion at all joints. No bony deformities or tenderness. Mild CVA tenderness, L > R. EXTREMITIES: No peripheral edema noted. NEUROLOGICAL: Cranial nerves II-XII intact. Normal speech. PSYCHIATRIC: Cooperative. Good eye contact. Appropriate mood and affect. SKIN: Warm, dry, normal turgor, no rashes or lesions noted, normal capillary refill. CBC, BMP 07/14/19 21:20 07/14/19 21:20 IMAGING: * Spiral CT: (IOC prelim read) showed no evid of obstructive uropathy, non- obstructing L renal parenchymal stone, no hydronephrosis, perinephric inflammation or urinary tract calculi; liver appears increased in density ASSESSMENT/PLAN: 59F w/ pmhx of HTN/HLD, COPD, IBS, depression presents to the ED for complaints of 1 month hx of dysuria, suprapubic pain, and flank pain admitted for UTI due to failed outpatient therapy. #UTI vs. ? Pyelonephritis; UA +nitrite, 1+LE, WBC 11 -Given IV Ceftriaxone x1 in ED. Will escalate to IV Zosyn 4.5 Q6H due to failed OP therapy on multiple abx -Spiral CT (IOC prelim read) showed no evid of obstructive uropathy, non-obstr ucting L renal parenchymal stone, no hydronephrosis, perinephric inflammation or urinary tract calculi; liver appears increased in density. Await final read. -Renal and bladder done; pending final read -Tamsulosin 0.4 -PO Tylenol, IV Morphine for pain -BCx, UCx ordered -Urology consult -ID consult #HTN/HLD; Stable. Cont home med: Simvastatin 40 HS, Lisinopril 20 #Hx of IBS; Cont home med: Miralax 17 gm, Senna #COPD; Current smoker. No acute exacerbation. Cont home med: Ellipta -Smoking cessation counseling #IBS; Stable. Cont home med: Miralax 17 gm QD #Hx of Depression; Stable. Sees Dr. Lila Calvillo as OP. Cont home med: Venlafaxine 150 AM, Lamictal 200 BID #Ppx GI: Cont home Protonix 40 QD DVT: Lovenox #FEN -PO hydration -recheck lytes in AM -Sodium-controlled diet Dispo -admit to med-surg Visit type - Emergency Visit Emergency Visit: Yes ED Registration Date: 07/14/19 Care time: The patient presented to the Emergency Department on the above date and was hospitalized for further evaluation of their emergent condition. - New Patient This patient is new to me today: Yes Date on this admission: 07/15/19 - Critical Care Critical Care patient: No ATTENDING PHYSICIAN STATEMENT I saw and evaluated the patient. I reviewed the resident's note and discussed the case with the resident. I agree with the resident's findings and plan as documented. SUBJECTIVE: OBJECTIVE: ASSESSMENT AND PLAN:
[2019-07-15] MEDS ORDERED: ACETAMINOPHEN 325 MG TABLET (FP) ONE (01:06)
--- NOTE | 2019-07-15 01:27 | PN ---
Teaching Attending Note Name of Resident: Nadeen Mcghee ATTENDING PHYSICIAN STATEMENT I saw and evaluated the patient. I reviewed the resident's note and discussed the case with the resident. I agree with the resident's findings and plan as documented. SUBJECTIVE: Patient is a 59 year old woman with a PMH of HTN, HLD, Depression, Left kidney stone, Tobacco use, Prior opiate use disorder and COPD presenting with worsening flank pain, suprapubic pain, and dysuria. She reports being seen at [facility] on 06/11/2019 and found to have UTI as well as a CT scan indicative of 3mm left renal stone at that time. She was started on Ciprofloxacin as well as Tamsulosin, but her dysuria persisted despite a second course of Cipro after completion of the first, started by her PCP. She reports chills last night, no measured fevers at home. She continues to have dysuria and her pain has worsened, 9/10, aching pain, localized to her bilateral flanks and suprapubic region. Also has a feeling of incomplete bladder emptying. She reports taking 325 mg Acetaminophen at about 1400 without improvement of pain. She denies nausea, vomiting, chest pain, shortness of breath, weakness, confusion. Not sexually active since she lost her 6 years ago. Denies alcohol abuse. No sick contacts or recent travels. OBJECTIVE: Alert Vital Signs Period Temp Pulse Resp BP Sys/Marie Pulse Ox Last 24 Hr 98.5 F 96 19 151/86 95 HEENT: No Jaundice, eye redness or discharge, PERRLA, EOMI. Normocephalic, atraumatic. External ears are normal and hearing is grossly intact. No nasal discharge. Neck: Supple, nontender. No palpable adenopathy or thyromegaly. No JVD Chest: Good effort. Clear to auscultation and percussion. Heart: Regular. No S3, rub or murmur Abdomen: Not distended, soft, flank and suprapubic tenderness; no HSM. No rebound or guarding. Normal bowel sounds. Ext: Peripheral pulses intact. No leg edema. Skin: Warm and dry. No petechiae, rash or ecchymosis. Neuro: Alert. Oriented x3. CN 2-12 grossly intact. Sensation grossly intact in all four extremities and DTR are symmetric. Psych: Appropriate mood and affect. Good insight. Current Medications Generic Name Dose Route Start Last Admin Trade Name Jose Mq PRN Reason Stop Dose Admin Acetaminophen 650 mg 07/14/19 23:48 07/15/19 01:13 Tylenol - PO 650 mg Q4H PRN Administration FEVER Atorvastatin Calcium 20 mg 07/15/19 22:00 Lipitor - PO HS [facility] Clonazepam 1 mg 07/15/19 01:52 Klonopin - PO TID PRN ANXIETY Enoxaparin Sodium 40 mg 07/15/19 10:00 Lovenox - SQ DAILY [facility] Piperacillin Sod/Tazobactam 100 mls @ 200 mls/hr 07/15/19 03:00 Sod 4.5 gm/ Dextrose IVPB Q6H-IV [facility] Protocol Piperacillin Sod/Tazobactam 100 mls @ 200 mls/hr 07/15/19 03:00 Sod 4.5 gm/ Dextrose IVPB 07/15/19 21:29 Q6H-IV [facility] Protocol Lamotrigine 200 mg 07/15/19 01:45 Lamictal - PO BID [facility] Lisinopril 20 mg 07/15/19 10:00 Prinivil PO DAILY [facility] Pantoprazole Sodium 40 mg 07/15/19 10:00 Protonix - PO DAILY [facility] Polyethylene Glycol 17 gm 07/15/19 10:00 Miralax (For Daily Use) - PO DAILY [facility] Tamsulosin HCl 0.4 mg 07/15/19 08:30 Flomax - PO DAILY@0830 [facility] Venlafaxine HCl 150 mg 07/15/19 07:00 Effexor Xr - PO AM [facility] Home Medications Medication Instructions Recorded Clonazepam [Klonopin] 1 mg PO TID PRN 07/02/12 Lamotrigine [Lamictal] 200 mg PO BID 07/02/12 Venlafaxine HCl ER [Effexor Xr -] 150 mg PO AM 07/02/12 Lisinopril [Prinivil] 20 mg PO DAILY 04/08/15 Simvastatin [Zocor -] 40 mg PO HS 04/08/15 Tamsulosin HCl [Flomax] 0.4 mg PO DAILY 07/14/19 Pantoprazole Sodium [Protonix] 40 mg PO DAILY 07/15/19 Polyethylene Glycol 3350 [Miralax 17 gm PO DAILY 07/15/19 (For Daily Use) -] Abnormal Lab Results 07/14/19 07/14/19 07/14/19 21:20 21:20 21:30 Lymphocytes % 41.4 H Anion Gap 5 L Random Glucose 115 H Total Bilirubin < 0.1 L AST 13 L Alkaline Phosphatase 145 H Urine Nitrite Positive H Urine Bilirubin 2+ H Ur Leukocyte Esterase 1+ H ASSESSMENT AND PLAN: 1. UTI/?Pyelonephritis - CT scan shows nonobstructing left kidney stone. Kidney/bladder sonogram being done for possible urinary retention. Sepsis workup done. Will treat with IV Zosyn pending culture report. EKG pending. Continue IV NS. Consult ID and Urology. Refer to Nephrology for outpatient workup to search for stone disease risk factor. Will continue comprehensive care for all of patients comorbid conditions. 2. Tobacco Use Counseled on risks associated with tobacco use. We will provide patient all the necessary assistance to facilitate smoking cessation and prescribe Nicotine patch. 3. Hypertension - Restart suitable outpatient antihypertensive drugs when clinically appropriate. Revise regimen to ensure [id number] excellent BP control and addiction counselor patient on the injurious effects of uncontrolled hypertension. Nonpharmacologic measures to control hypertension like weight loss, salt restriction and exercise discussed. Importance of adherence to treatment regimen and attainment of normotension emphasized. 4. DVT prophylaxis - Lovenox 40 mg SQ q 24 hours. 5. Advance directives - Full code
[2019-07-15] MEDS ORDERED: PATIENT'S OWN MEDICATION (NON-FORMULARY) (Clonazepam [Klonopin] 1 MG) PO PRN (01:35)
[2019-07-15] MEDS ORDERED: PIPERACILLIN/TAZOB 4.5 GM 4.5 GM/100 ML BAG IVPB ONE (02:18)
[2019-07-15] MEDS ORDERED: lamoTRIgine 25 MG TABLET ONE (02:21)
[2019-07-15] MEDS: PIPERACILLIN/TAZOB 4.5 GM 4.5 GM in DEXTROSE 5%-WATER 100 ML IVPB SCH ×3 (02:43→15:05)
[2019-07-15] MEDS ORDERED: PIPERACILLIN/TAZOB 4.5 GM 4.5 GM in DEXTROSE 5%-WATER 100 ML IVPB SCH (03:00)
[2019-07-15] MEDS ORDERED: SENNOSIDES 8.6MG TABLET (FP) PO SCH (03:22)
[2019-07-15] MEDS ORDERED: morphine CARPU-JECT 4 MG/1 ML DISP.SYRIN IVPUSH SCH (03:30)
[2019-07-15 03:41] VITALS: TEMP 98.3
[2019-07-15] MEDS ORDERED: MORPHINE SULFATE 2 MG/ML VIAL ONE (03:44)
[2019-07-15] MEDS ORDERED: SENNOSIDES 8.6MG TABLET (FP) PO ONE ×2 (03:45→03:47)
[2019-07-15] MEDS: MORPHINE SULFATE 2 MG/ML VIAL IVPUSH SCH ×2 (03:52→07:51)
[2019-07-15 04:44] VITALS: BMI 22.1
[2019-07-15] MEDS ORDERED: lamoTRIgine 100 MG TABLET PO SCH (05:47)
[2019-07-15] MEDS: clonazePAM 0.5 MG TABLET PO PRN ×2 (06:34→15:04)
[2019-07-15] MEDS ORDERED: VENLAFAXINE HCL 75 MG E.R. CAPSULES PO SCH (07:00)
[2019-07-15 07:55] LABS: HEMATOCRIT 39.8 % (32.4-45.2); HEMOGLOBIN 13.4 GM/dL (10.7-15.3); MCH 29.6 pg (25.7-33.7); MCHC 33.6 g/dl (32.0-36.0); PLATELET COUNT 226 K/MM3 (134-434); RBC 4.52 M/mm3 (3.60-5.2); RDW 13.8 % (11.6-15.6); WHITE BLOOD COUNT 8.1 K/mm3 (4.0-10.0)
[2019-07-15 08:19] LABS: BLOOD UREA NITROGEN 10.1 mg/dL (7-18); CALCIUM 9.4 mg/dL (8.5-10.1); CREATININE 0.7 mg/dL (0.55-1.3); POTASSIUM 4.7 mmol/L (3.5-5.1)
[2019-07-15] MEDS ORDERED: TAMSULOSIN HCL 0.4 MG CAP PO SCH (08:30)
[2019-07-15] MEDS ORDERED: POLYETHYLENE GLYCOL 3350 119 GM BTL PO SCH ×2 (10:00)
[2019-07-15] MEDS ORDERED: PATIENT'S OWN MEDICATION (NON-FORMULARY) (Umeclidinium Bromide [Incruse Ellipta] 62.5 MCG) IH SCH (10:00)
[2019-07-15] MEDS ORDERED: ENOXAPARIN NA (PORCINE) 40 MG/0.4 ML DISP.SYRIN SQ SCH (10:00)
[2019-07-15] MEDS ORDERED: PANTOPRAZOLE 40 MG TABLET PO SCH (10:00)
[2019-07-15] MEDS ORDERED: LISINOPRIL 20 MG TABLET (FP) PO SCH (10:00)
[2019-07-15] MEDS ORDERED: TIOTROPIUM BROMIDE 2.5 MCG (SPIRIVA) RESPIMAT INHALER IH SCH (10:00)
[2019-07-15] MEDS ORDERED: CEFTRIAXONE 1 GM in DEXTROSE 5%-WATER - 50 ML IVPB SCH (10:00)
--- NOTE | 2019-07-15 10:27 | PN ---
Progress Note (short form) - Note Progress Note: uncomplicated uti tiny non obstructing stone on us no surgical intervention at this time follow up as outpatient
[2019-07-15] MEDS ORDERED: oxyCODONE HCL 5 MG TABLET PO ONE (10:30)
[2019-07-15] MEDS ORDERED: DEXTROSE 5%-WATER 100 ML IVPB ONE ×2 (10:42→15:01)
[2019-07-15] MEDS ORDERED: PIPERACILLIN/TAZOBACTAM 4.5 GM VIAL IVPB ONE ×2 (10:42→15:01)
--- NOTE | 2019-07-15 10:45 | EKG ---
Test Reason : Blood Pressure : / mmHG Vent. Rate : 076 BPM Atrial Rate : 076 BPM P-R Int : 130 ms QRS Dur : 090 ms QT Int : 372 ms P-R-T Axes : 076 079 068 degrees QTc Int : 418 ms POOR DATA QUALITY, INTERPRETATION MAY BE ADVERSELY AFFECTED NORMAL SINUS RHYTHM NORMAL ECG WHEN COMPARED WITH ECG OF 11-AUG-2014 20:40, NO SIGNIFICANT CHANGE WAS FOUND Confirmed by DAFNE SYLVESTER MD ([id number]) on 07/15/2019 10:45:20 AM Referred By: Confirmed By:DAFNE SYLVESTER MD
[2019-07-15] MEDS ORDERED: PT OWN MED DRAWER 7, Y5N ONE (11:13)
--- NOTE | 2019-07-15 12:58 | CON.ID ---
Consult Consult Specialty:: infectious diseases Referred by:: hospitalist Reason for Consultation:: uti - History of Present Illness Chief Complaint: generalized pain History of Present Illness: 59F w/ pmhx of HTN/HLD, COPD, IBS, depression presents with dysuria, suprapubic pain, and flank pain. Pt says she was hospitalized at [facility] on 06/11/19 after which she was prescribed Ciprofloxacin and Tamsulosin and advised to go to her PCP. At that time, she had a CTA done that showed a 3 mm non- obstructed stone. She then completed another tx of Cipro as an outpatient, however despite all antibiotic therapies, her symptoms of dysuria, flank pain and suprapubic pain persisted. She saw her PCP this week who then prescribed her Amoxicillin and advised her to go to the ED to get an "ultrasound blast". Additionally, she admits to urinary retention as well as bilateral flank pain, L > R. L currently patient is c/o of generalized pain all over and says the pain medications do not help her very much - History Source History Provided By: Patient Limitations to Obtaining History: No Limitations - Past Medical History Gastrointestinal: Yes: Constipation, Irritable Bowel Disease, Other (adhesions) ...LMP: 06/21/14 Psych: Yes: Anxiety - Past Surgical History Past Surgical History: Yes: - Alcohol/Substance Use Hx Alcohol Use: No - Smoking History Smoking history: Current every day smoker Have you smoked in the past 12 months: Yes Aproximately how many cigarettes per day: 10 Home Medications - Allergies Allergies/Adverse Reactions: Allergies Allergy/AdvReac Type Severity Reaction Status Date / Time hydromorphone HCl Allergy Verified 11/09/16 01:54 [From Dilaudid] ketorolac tromethamine Allergy Itching Verified 11/09/16 01:54 [From Toradol] naproxen [From Naprosyn] Allergy Hives Verified 11/09/16 01:54 pregabalin [From Lyrica] Allergy DRUG Verified 11/09/16 01:54 INTERACTION quetiapine fumarate Allergy Hives Verified 11/09/16 01:54 [From Seroquel] trazodone Allergy Itching Verified 11/09/16 01:54 varenicline tartrate Allergy DRUG Verified 11/09/16 01:54 [From Chantix] INTERACTION - Home Medications Home Medications: Ambulatory Orders Clonazepam [Klonopin] 1 mg PO TID PRN 07/02/12 Lamotrigine [Lamictal] 200 mg PO BID 07/02/12 Venlafaxine HCl ER [Effexor Xr -] 150 mg PO AM 07/02/12 Lisinopril [Prinivil] 20 mg PO DAILY 04/08/15 Simvastatin [Zocor -] 40 mg PO HS 04/08/15 Tamsulosin HCl [Flomax] 0.4 mg PO DAILY 07/14/19 Pantoprazole Sodium [Protonix] 40 mg PO DAILY 07/15/19 Polyethylene Glycol 3350 [Miralax (For Daily Use) -] 17 gm PO DAILY 07/15/19 Umeclidinium [place] [Incruse Ellipta] 62.5 mcg IH DAILY 07/15/19 Review of Systems - Review of Systems Constitutional: reports: Other (generalized pain) Eyes: reports: No Symptoms HENT: reports: No Symptoms Neck: reports: No Symptoms Cardiovascular: reports: No Symptoms Respiratory: reports: No Symptoms Gastrointestinal: reports: Abdominal Pain Musculoskeletal: reports: Back Pain Integumentary: reports: No Symptoms Neurological: reports: No Symptoms Endocrine: reports: No Symptoms Hematology/Lymphatic: reports: No Symptoms Psychiatric: reports: No Symptoms Physical Exam Vital Signs: Vital Signs Temperature 98.3 F 07/15/19 04:08 Pulse Rate 75 07/15/19 04:08 Respiratory Rate 20 07/15/19 04:08 Blood Pressure 159/93 07/15/19 04:08 O2 Sat by Pulse Oximetry (%) 96 07/15/19 03:41 Constitutional: Yes: Calm, Mild Distress Cardiovascular: Yes: S1, S2 Respiratory: Yes: Regular, CTA Bilaterally Gastrointestinal: Yes: Normal Bowel Sounds, Soft Musculoskeletal: Yes: WNL Extremities: Yes: WNL Neurological: Yes: Alert, Oriented Labs: CBC, BMP 07/15/19 07:15 07/15/19 07:15 Imaging - Results Cat Scan: Image Reviewed Ultrasound: Report Reviewed, Image Reviewed Assessment/Plan patient with multiple medical problems with pain all over the body,with looks like mild uncomplicated uti i would suggest to hold off on any abx ,if needed can use augmentin await for all cx reports and official read on ct scan rest as per the team
--- NOTE | 2019-07-15 17:14 | DS ---
Physical Exam: SUBJECTIVE: Patient seen and examined at bedside. Endorses back and suprapubic pain. No acute events overnight. OBJECTIVE: Vital Signs Period Temp Pulse Resp BP Sys/Marie Pulse Ox Last 24 Hr 97 F-98.5 F 75-96 18-20 147-163/86-96 95-96 PHYSICAL EXAM GENERAL: HEAD: Atraumatic/Normocephalic EYES: EOMI Sclera Clear ENT: MMM NECK: Trachea midline, full range of motion, supple. LUNGS: Expiratory wheezing throughout. HEART: RRR S1S2 ABDOMEN: ++suprapubic tenderness. No CVA tenderness EXTREMITIES: No CCE NEUROLOGICAL: Cranial nerves II through XII grossly intact. Normal speech. PSYCH: Normal mood, normal affect. SKIN: Warm, dry, normal turgor, no rashes or lesions noted. LABS Laboratory Results - last 24 hr 07/14/19 07/14/19 07/14/19 21:20 21:20 21:30 WBC 7.1 RBC 4.75 Hgb 14.0 Hct 42.2 MCV 88.8 MCH 29.4 MCHC 33.1 RDW 14.1 Plt Count 259 MPV 9.2 Absolute Neuts (auto) 3.3 Neutrophils % 47.3 Lymphocytes % 41.4 H Monocytes % 9.1 Eosinophils % 1.7 Basophils % 0.5 Nucleated RBC % 0 Sodium 141 Potassium 4.3 Chloride 107 Carbon Dioxide 29 Anion Gap 5 L BUN 14.3 Creatinine 0.6 Est GFR (CKD-EPI)AfAm 117.27 Est GFR (CKD-EPI)NonAf 101.18 Random Glucose 115 H Calcium 9.5 Total Bilirubin < 0.1 L AST 13 L ALT 22 Alkaline Phosphatase 145 H Total Protein 6.5 Albumin 3.6 Urine Color [place] Urine Appearance Clear Urine pH 5.0 Ur Specific [place] 1.031 Urine Protein Trace Urine Glucose (UA) Negative Urine Ketones Negative Urine Blood Negative Urine Nitrite Positive H Urine Bilirubin 2+ H Urine Urobilinogen 1.0 Ur Leukocyte Esterase 1+ H Urine WBC (Auto) 11 Urine Casts (Auto) 1 U Epithel Cells (Auto) 4 Urine Bacteria (Auto) 11 07/15/19 07/15/19 07:15 07:15 WBC 8.1 RBC 4.52 Hgb 13.4 Hct 39.8 MCV 88.0 MCH 29.6 MCHC 33.6 RDW 13.8 Plt Count 226 MPV 9.0 Absolute Neuts (auto) Neutrophils % Lymphocytes % Monocytes % Eosinophils % Basophils % Nucleated RBC % Sodium 143 Potassium 4.7 Chloride 108 H Carbon Dioxide 29 Anion Gap 5 L BUN 10.1 Creatinine 0.7 Est GFR (CKD-EPI)AfAm 111.47 Est GFR (CKD-EPI)NonAf 96.18 Random Glucose 82 Calcium 9.4 Total Bilirubin AST ALT Alkaline Phosphatase Total Protein Albumin Urine Color Urine Appearance Urine pH Ur Specific [place] Urine Protein Urine Glucose (UA) Urine Ketones Urine Blood Urine Nitrite Urine Bilirubin Urine Urobilinogen Ur Leukocyte Esterase Urine WBC (Auto) Urine Casts (Auto) U Epithel Cells (Auto) Urine Bacteria (Auto) HOSPITAL COURSE: Date of Admission:07/14/19 Patient is a 59 y/o F w/ pmhx of HTN/HLD, COPD, IBS, and depression who presented to the ED for complaints of 1 month hx of dysuria, suprapubic pain, and flank pain. Patient's urinalysis revealed 1+ leukocyte esterase, + nitrites. Patient received a 1 time dose of ceftriaxone while in the E.D but was ultimately placed on Zosyn as she reportedly failed multiple outpatient antibiotic treatments. Pt also underwent a Spiral CT: " no evidence of obstructive uropathy, nonobstructing left renal parenchymal stone. Renal U/S: questionable nonobstructing tiny stone left kidney. 9 mm cyst right kidney with mild hydro. Urology was called to evaluate patient. Urology recommended outpatient follow up as no acute surgical intervention was necessary. Patient was discharged on Augmentin for 5 days and an appointment to visit he Urologist was scheduled for the patient at 2 pm on July 18, 2019 (Thursday). Date of Discharge: 07/15/19 Minutes to complete discharge: 35 Discharge Summary Problems reviewed: Yes Reason For Visit: CALCULUS OF KIDNEY Current Active Problems Abdominal pain (Acute) Cystitis (Acute) Pyelonephritis (Acute) Renal stone (Acute) Condition: Good - Instructions Diet, Activity, Other Instructions: You presented to the hospital due to painful urination, flank pain, and lower abdominal pain. You were found to have a small, nonobstructing stone in your left ureter. Urology evaluated you and recommends you follow up with them as outpatient. You were also found to have a small cyst on your kidney as well as some swellin g. Please follow up with the urologist for this as well. An appointment has been made for at 2 pm for this Thursday07/18/2019. A referral has been provided in your discharge instructions. Please take the following antibiotic below for 5 days starting tomorrow morning. You are to take this medication twice a day. -Augmentin 875 TWICE a day for 5 days. Please follow up with your primary care doctor in 1 week. If you would like to, you may follow up at the hospital medical clinic. A referral has been provided for you in your discharge papers. Please return to the emergency department if you begin to experience chest pain, shortness of breath, fever, chills, or worsening symptoms. Referrals: [facility] [Provider Group] Anastacio Matos MD., [Staff Physician] - Disposition: AGAINST MEDICAL ADVICE - Home Medications Comprehensive Discharge Medication List: Ambulatory Orders Clonazepam [Klonopin] 1 mg PO TID PRN 07/02/12 Lamotrigine [Lamictal] 200 mg PO BID 07/02/12 Venlafaxine HCl ER [Effexor Xr -] 150 mg PO AM 07/02/12 Lisinopril [Prinivil] 20 mg PO DAILY 04/08/15 Simvastatin [Zocor -] 40 mg PO HS 04/08/15 Tamsulosin HCl [Flomax] 0.4 mg PO DAILY 07/14/19 Amoxicillin/Potassium Clav [Augmentin 875-125 Tablet] 1 each PO BID #10 tablet 07/15/19 Dicyclomine HCl [Bentyl -] 2 tab PO BID 07/15/19 Methadone [Dolophine -] 10 mg PO BID 07/15/19 Oxycodone HCl/Acetaminophen [Oxycodone-Acetaminophen 5-325] 1 tab PO Q6H PRN 07/15/19 Pantoprazole Sodium [Protonix] 40 mg PO DAILY 07/15/19 Phenazopyridine HCl 100 mg PO DAILY 07/15/19 Polyethylene Glycol 3350 [Miralax 119 gm Btl -] 17 gm PO DAILY 07/15/19 Tamsulosin HCl 0.4 mg PO DAILY 07/15/19 Umeclidinium [place] [Incruse Ellipta] 62.5 mcg IH DAILY 07/15/19 This patient is new to me today: Yes Date on this admission: 07/15/19 Emergency Visit: Yes ED Registration Date: 07/14/19 Care time: The patient presented to the Emergency Department on the above date and was hospitalized for further evaluation of their emergent condition. Critical Care patient: No - Discharge Referral Referred to [facility] Med [facility].C.: No ATTENDING PHYSICIAN STATEMENT I saw and evaluated the patient. I reviewed the resident's note and discussed the case with the resident. I agree with the resident's findings and plan as documented. SUBJECTIVE: OBJECTIVE: ASSESSMENT AND PLAN:
[2019-07-15 17:17] VITALS: BP 123/100; PULSE 81
--- NOTE | 2019-07-15 17:35 | PN ---
Teaching Attending Note Name of Resident: Jer Murcia ATTENDING PHYSICIAN STATEMENT I saw and evaluated the patient. I reviewed the resident's note and discussed the case with the resident. I agree with the resident's findings and plan as documented. SUBJECTIVE: Reports some suprapubic discomfort - improving. No dysuria/hematuria/nausea/vomiting/diarrhea/melena/hematochezia. OBJECTIVE: Afebrile, Hemodynamically Stable. Last Vital Signs Temp Pulse Resp BP Pulse Ox 98.3 F 81 20 123/100 96 07/15/19 08:19 07/15/19 08:19 07/15/19 09:00 07/15/19 08:19 07/15/19 09:00 HEENT - Atraumatic, Normocephalic. Heart - S1, S2, RRR Lungs - clear to auscultation Abdomen - soft, mild suprapubic tenderness. Bowel Sounds normal. Extremities - no edema, no calf tenderness. Neuro - AAO x 3. Tone/Power normal all extremities. Laboratory Results - last 24 hr 07/14/19 07/14/19 07/14/19 21:20 21:20 21:30 WBC 7.1 RBC 4.75 Hgb 14.0 Hct 42.2 MCV 88.8 MCH 29.4 MCHC 33.1 RDW 14.1 Plt Count 259 MPV 9.2 Absolute Neuts (auto) 3.3 Neutrophils % 47.3 Lymphocytes % 41.4 H Monocytes % 9.1 Eosinophils % 1.7 Basophils % 0.5 Nucleated RBC % 0 Sodium 141 Potassium 4.3 Chloride 107 Carbon Dioxide 29 Anion Gap 5 L BUN 14.3 Creatinine 0.6 Est GFR (CKD-EPI)AfAm 117.27 Est GFR (CKD-EPI)NonAf 101.18 Random Glucose 115 H Calcium 9.5 Total Bilirubin < 0.1 L AST 13 L ALT 22 Alkaline Phosphatase 145 H Total Protein 6.5 Albumin 3.6 Urine Color [place] Urine Appearance Clear Urine pH 5.0 Ur Specific [place] 1.031 Urine Protein Trace Urine Glucose (UA) Negative Urine Ketones Negative Urine Blood Negative Urine Nitrite Positive H Urine Bilirubin 2+ H Urine Urobilinogen 1.0 Ur Leukocyte Esterase 1+ H Urine WBC (Auto) 11 Urine Casts (Auto) 1 U Epithel Cells (Auto) 4 Urine Bacteria (Auto) 11 07/15/19 07/15/19 07:15 07:15 WBC 8.1 RBC 4.52 Hgb 13.4 Hct 39.8 MCV 88.0 MCH 29.6 MCHC 33.6 RDW 13.8 Plt Count 226 MPV 9.0 Absolute Neuts (auto) Neutrophils % Lymphocytes % Monocytes % Eosinophils % Basophils % Nucleated RBC % Sodium 143 Potassium 4.7 Chloride 108 H Carbon Dioxide 29 Anion Gap 5 L BUN 10.1 Creatinine 0.7 Est GFR (CKD-EPI)AfAm 111.47 Est GFR (CKD-EPI)NonAf 96.18 Random Glucose 82 Calcium 9.4 Total Bilirubin AST ALT Alkaline Phosphatase Total Protein Albumin Urine Color Urine Appearance Urine pH Ur Specific [place] Urine Protein Urine Glucose (UA) Urine Ketones Urine Blood Urine Nitrite Urine Bilirubin Urine Urobilinogen Ur Leukocyte Esterase Urine WBC (Auto) Urine Casts (Auto) U Epithel Cells (Auto) Urine Bacteria (Auto) Discharge Medications Medication Instructions Recorded Clonazepam [Klonopin] 1 mg PO TID PRN 07/02/12 Lamotrigine [Lamictal] 200 mg PO BID 07/02/12 Venlafaxine HCl ER [Effexor Xr -] 150 mg PO AM 07/02/12 Lisinopril [Prinivil] 20 mg PO DAILY 04/08/15 Simvastatin [Zocor -] 40 mg PO HS 04/08/15 Tamsulosin HCl [Flomax] 0.4 mg PO DAILY 07/14/19 Amoxicillin/Potassium Clav 1 each PO BID #10 tablet 07/15/19 [Augmentin 875-125 Tablet] Dicyclomine HCl [Bentyl -] 2 tab PO BID 07/15/19 Oxycodone HCl/Acetaminophen 1 tab PO Q6H PRN 07/15/19 [Oxycodone-Acetaminophen 5-325] Pantoprazole Sodium [Protonix] 40 mg PO DAILY 07/15/19 Phenazopyridine HCl 100 mg PO DAILY 07/15/19 Polyethylene Glycol 3350 [Miralax 17 gm PO DAILY 07/15/19 119 gm Btl -] Tamsulosin HCl 0.4 mg PO DAILY 07/15/19 Umeclidinium [place] [Incruse 62.5 mcg IH DAILY 07/15/19 Ellipta] ASSESSMENT AND PLAN: 59 year old HTN, HLD, COPD, Depression, IBS, admitted with suprapubic and flank pain, recently hospitalized at [facility] with Ciprofloxacin and Tamsulosin. CT A/P (prelim read) showed no evidence of obstructive uropathy, non-obstructing L renal parenchymal stone, no hydronephrosis or perinephric inflammation. Small non or urinary tract calculi; liver appears increased in density 1. UTI No evidence of pyelonephritis. Empirically treated with Zosyn, discharged on Augmentin 2. Nephrolithiasis CT as above Real/Bladder US - questionable tiny L obstructing stone, small R cyst with mild hydro; bladder unremarkable. Evaluated by Urology - no need for further intervention or hospitalization, recommend out-patient follow up. Continue Tamsulosin. 3. HTN - Continue Lisinopril 4. HLD - continue Statin 5. Hx COPD - No evidence of exacerbation. continue Incruse Ellipta 6. Depression - continue Venlafaxine, Lamictal. 7. IBS - continue Dicyclomine. Medically optimized for discharge on 5 days Augmentin with urology follow up arranged for Thursday07/18/19
[2019-07-15] MEDS ORDERED: PATIENT'S OWN MEDICATION (NON-FORMULARY) (Simvastatin 40 MG) PO SCH (22:00)
[2019-07-15] MEDS ORDERED: ATORVASTATIN CA 20 MG TABLET (FP) PO SCH (22:00)
== END 2019-07-15 17:43 | disposition left against medical advice (07) | DRG 690 ==
LOC: JER 20:15 → JERBED 22:08 → J8W 07-15 04:08
PROVIDERS: ADMIT Internal Medicine
DX: N13.6 Pyonephrosis (principal); I10 Essential (primary) hypertension; K58.9 Irritable bowel syndrome, unspecified; N28.1 Cyst of kidney, acquired; E78.5 Hyperlipidemia, unspecified; F32.9 Major depressive disorder, single episode, unspecified; J44.9 Chronic obstructive pulmonary disease, unspecified; K59.09 Other constipation; G43.909 Migraine, unspecified, not intractable, without status migrainosus; F17.210 Nicotine dependence, cigarettes, uncomplicated
CPT/HCPCS: 36415; 71045-TC-FY; 74176-TC; 76775-TC; 76856-TC; 80048; 80053; 81003; 85025; 85027; 87040; 87086; 93005; 93010; 99285-25; J0131; J7030

== ENCOUNTER 2020-06-24 21:56 | Emergency (ER) | payer OTHER ==
[2020-06-24 22:13] VITALS: BMI 23.5
[2020-06-24] MEDS ORDERED: ALBUTEROL SO4 2.5/IPRATROPIUM 0.5 INH SOL 3 ML VIAL.NEB. NEB ONE ×2 (22:51→23:19)
[2020-06-24] MEDS ORDERED: DEXAMETHASONE SOD PHOSPHATE 10 MG/1 ML VIAL IVPUSH ONE (22:51)
[2020-06-24] MEDS ORDERED: ACETAMINOPHEN 1000 MG/100 ML VIAL (NON FORMULARY) IVPB ONE (22:51)
[2020-06-24] MEDS ORDERED: DEXAMETHASONE SOD PHOSPHATE 10 MG/1 ML VIAL ONE (23:19)
[2020-06-24] MEDS ORDERED: ACETAMINOPHEN INJECTION 100 ML IVPB ONE (23:19)
[2020-06-24 23:28] LABS: BASO % 0.3 % (0-2.0); EOS % 0.7 % (0-4.5); HEMATOCRIT 41.5 % (32.4-45.2); HEMOGLOBIN 13.8 GM/dL (10.7-15.3); MCH 28.8 pg (25.7-33.7); MCHC 33.3 g/dl (32.0-36.0); MEAN CELL VOLUME 86.7 fl (80-96); MEAN PLT VOLUME 9.7 fl (7.5-11.1); PLATELET COUNT 246 K/MM3 (134-434); RBC 4.79 M/mm3 (3.60-5.2); WHITE BLOOD COUNT 6.9 K/mm3 (4.0-10.0)
[2020-06-24 23:31] LABS: EPI CELLS >36 /uL (0-25.1); HYALINE CASTS 5 /uL (0-3.1); PH,URINE 5.5 (5.0-8.0); URINE APPEARANCE CLOUDY; URINE BACTERIA 1020 /uL (0-1359); URINE BILIRUBIN NEGATIVE (NEGATIVE); URINE COLOR YELLOW; URINE GLUCOSE (UA) NEGATIVE (NEGATIVE); URINE KETONE TRACE (NEGATIVE); URINE LEUK ESTERASE TRACE (NEGATIVE); URINE NITRITE NEGATIVE (NEGATIVE); URINE PROTEIN NEGATIVE (NEGATIVE); URINE WBC 41 /uL (0-25.8)
[2020-06-24 23:34] LABS: URINE RBC 73.8 /uL (0-23.9)
[2020-06-24 23:43] LABS: INR 1.01 (0.83-1.09); PROTHROMBIN TIME (PATIENT) 12.2 SEC (9.7-13.0)
[2020-06-24 23:45] LABS: ACTIVATED PTT 32.9 SECONDS (25.2-36.5)
[2020-06-24] MEDS ORDERED: METOCLOPRAMIDE HCL INJECTION 10 MG/2 ML VIAL IVPB ONE (23:49)
[2020-06-24 23:53] LABS: CHLORIDE 108 mmol/L (98-107); POTASSIUM 4.1 mmol/L (3.5-5.1); SODIUM 144 mmol/L (136-145)
[2020-06-24 23:55] LABS: ALBUMIN 3.5 g/dl (3.4-5.0); ANION GAP 8 MMOL/L (8-16); CALCIUM 9.9 mg/dL (8.5-10.1); CO2 29 mmol/L (21-32); LIPASE 184 U/L (73-393)
[2020-06-24 23:57] LABS: BLOOD UREA NITROGEN 15.4 mg/dL (7-18); GLUCOSE,RANDOM 113 mg/dL (74-106)
[2020-06-24 23:58] LABS: CREATININE 0.7 mg/dL (0.55-1.3); SGOT/AST 8 U/L (15-37); SGPT/ALT 20 U/L (13-61)
[2020-06-25] LABS: BILIRUBIN,TOTAL 0.2 mg/dL (0.2-1); TOT PROT 6.9 g/dl (6.4-8.2)
[2020-06-25] MEDS ORDERED: METOCLOPRAMIDE HCL INJECTION 10 MG/2 ML VIAL ONE (00:01)
[2020-06-25 00:02] LABS: ALK PHOS 135 U/L (45-117); LDH 172 U/L (84-246)
[2020-06-25 01:02] VITALS: BP 117/78; PULSE 90
[2020-06-25 02:06] VITALS: TEMP 99.1
[2020-06-25] MEDS ORDERED: PHENAZOPYRIDINE HCL 100 MG TABLET (FP) PO ONE (02:55)
[2020-06-25] MEDS ORDERED: PHENAZOPYRIDINE HCL 100 MG TABLET (FP) ONE (03:07)
== END 2020-06-25 03:18 | disposition home or self-care (01) ==
LOC: JER 21:56
PROC: 3E0333Z Introduction of Anti-inflammatory into Peripheral Vein, Percutaneous Approach (ICD-10-PCS; principal; 2020-06-24)
PROC: 3E0F7GC Introduction of Other Therapeutic Substance into Respiratory Tract, Via Natural or Artificial Opening (ICD-10-PCS; 2020-06-24)
PROC: 3E033GC Introduction of Other Therapeutic Substance into Peripheral Vein, Percutaneous Approach (ICD-10-PCS; 2020-06-24)
PROC: 3E033GC Introduction of Other Therapeutic Substance into Peripheral Vein, Percutaneous Approach (ICD-10-PCS; 2020-06-24)
DX: R10.9 Unspecified abdominal pain (principal); R06.02 Shortness of breath
CPT/HCPCS: 36415; 71045-TC-FY; 74177-TC; 80053; 81003; 82550; 82728; 83605; 83615; 83690; 84484; 85025; 85610; 85730; 86140; 87040; 87086; 93005; 93010; 99285-25; C9803; J0131; J1100; U0003

== ENCOUNTER 2020-08-13 23:57 | Emergency (ER) | payer OTHER ==
[2020-08-14] MEDS ORDERED: METOCLOPRAMIDE HCL INJECTION 10 MG/2 ML VIAL IVPB ONE (00:25)
[2020-08-14] MEDS ORDERED: ALBUTEROL SO4 2.5/IPRATROPIUM 0.5 INH SOL 3 ML VIAL.NEB. NEB SCH (00:30)
[2020-08-14] MEDS ORDERED: methylPREDNISolone NA SUCC 125 MG/2 ML VIAL IVPUSH ONE (00:33)
[2020-08-14 00:34] VITALS: BP 131/68; TEMP 98.6; BMI 21.4
[2020-08-14] MEDS ORDERED: methylPREDNISolone NA SUCC 125 MG/2 ML VIAL ONE (01:29)
[2020-08-14] MEDS ORDERED: ALBUTEROL SO4 2.5/IPRATROPIUM 0.5 INH SOL 3 ML VIAL.NEB. NEB ONE (01:29)
[2020-08-14] MEDS ORDERED: METOCLOPRAMIDE HCL INJECTION 10 MG/2 ML VIAL ONE (01:29)
[2020-08-14 01:34] LABS: VENOUS BASE EXCESS 0.3 mmol/L (-2-2); VENOUS O2 SATURATION 92.8 % (70-80); VENOUS PCO2 45.3 mmHg (38-52); VENOUS PH 7.374 (7.310-7.410)
[2020-08-14 01:40] LABS: BASO % 0.7 % (0-2.0); EOS % 1.5 % (0-4.5); HEMATOCRIT 39.6 % (32.4-45.2); HEMOGLOBIN 13.3 GM/dL (10.7-15.3); LYMPH % 33.6 % (8-40); MCH 29.4 pg (25.7-33.7); MCHC 33.6 g/dl (32.0-36.0); MEAN CELL VOLUME 87.5 fl (80-96); MEAN PLT VOLUME 8.6 fl (7.5-11.1); MONO % 9.5 % (3.8-10.2); NEUT % 54.7 % (42.8-82.8); PLATELET COUNT 270 K/MM3 (134-434); RBC 4.53 M/mm3 (3.60-5.2); WHITE BLOOD COUNT 6.5 K/mm3 (4.0-10.0)
[2020-08-14 01:49] LABS: INR 1.08 (0.83-1.09); PROTHROMBIN TIME (PATIENT) 13.2 SEC (9.7-13.0)
[2020-08-14 01:51] LABS: ACTIVATED PTT 30.5 SECONDS (25.2-36.5)
[2020-08-14 02:01] LABS: CHLORIDE 104 mmol/L (98-107); SODIUM 139 mmol/L (136-145)
[2020-08-14 02:04] LABS: ALBUMIN 3.5 g/dl (3.4-5.0); ANION GAP 2 MMOL/L (8-16); BLOOD UREA NITROGEN 11.7 mg/dL (7-18); CO2 33 mmol/L (21-32); GLUCOSE,RANDOM 106 mg/dL (74-106)
[2020-08-14 02:07] LABS: CREATININE 0.7 mg/dL (0.55-1.3); SGOT/AST 10 U/L (15-37); SGPT/ALT 22 U/L (13-61)
[2020-08-14 02:08] LABS: BILIRUBIN,TOTAL 0.1 mg/dL (0.2-1); TOT PROT 6.7 g/dl (6.4-8.2)
[2020-08-14 02:10] LABS: ALK PHOS 135 U/L (45-117)
[2020-08-14 02:11] LABS: N-TERMINAL BNP 37.1 pg/ml (5-125)
[2020-08-14 02:31] VITALS: PULSE 72
== END 2020-08-14 03:10 | disposition home or self-care (01) ==
LOC: JER 23:57
PROC: 3E0F7GC Introduction of Other Therapeutic Substance into Respiratory Tract, Via Natural or Artificial Opening (ICD-10-PCS; principal; 2020-08-13)
PROC: 3E033GC Introduction of Other Therapeutic Substance into Peripheral Vein, Percutaneous Approach (ICD-10-PCS; 2020-08-13)
PROC: 3E033GC Introduction of Other Therapeutic Substance into Peripheral Vein, Percutaneous Approach (ICD-10-PCS; 2020-08-13)
DX: J44.1 Chronic obstructive pulmonary disease with (acute) exacerbation (principal)
CPT/HCPCS: 36415; 71045-TC-FY; 80053; 82803; 83880; 84484; 85025; 85610; 85730; 87804; 93005; 93010; 99285-25; C9803; U0003; U0005

== ENCOUNTER 2020-10-14 12:23 | Emergency (ER) | payer OTHER ==
[2020-10-14 12:37] VITALS: TEMP 98; BMI 28.8
[2020-10-14] MEDS ORDERED: FAMOTIDINE 20 MG TABLET PO ONE (13:00)
[2020-10-14] MEDS ORDERED: KETOROLAC TROMETHAMINE 30 MG/1 ML VIAL IM ONE (13:00)
[2020-10-14] MEDS ORDERED: ONDANSETRON *ODT* 4 MG TABLET SL ONE (13:00)
[2020-10-14] MEDS ORDERED: MAG HYDROX/AL HYDROX/SIMETH 30 ML UNIT-DOSE CUP PO ONE (13:01)
[2020-10-14] MEDS ORDERED: ONDANSETRON 4 MG/2 ML VIAL IVPUSH ONE (13:14)
[2020-10-14] MEDS ORDERED: MAG HYDROX/AL HYDROX/SIMETH -MYLANTA- ORAL SUSPENSION PO ONE (13:15)
[2020-10-14] MEDS ORDERED: SODIUM CHLORIDE 0.9% 500 ML INFUS.BAG IV ONE (13:15)
[2020-10-14] MEDS ORDERED: FAMOTIDINE 20 MG/50 ML IVPB 20 MG/50 ML MG IVPB ONE ×2 (13:15→13:23)
[2020-10-14] MEDS ORDERED: ACETAMINOPHEN 1000 MG/100 ML VIAL (NON FORMULARY) IVPB ONE (13:15)
[2020-10-14] MEDS ORDERED: ONDANSETRON 4 MG/2 ML VIAL ONE (13:22)
[2020-10-14] MEDS ORDERED: MAG HYDROX/AL HYDROX/SIMETH 30 ML UNIT-DOSE CUP ONE (13:22)
[2020-10-14] MEDS ORDERED: ACETAMINOPHEN INJECTION 100 ML IVPB ONE (13:22)
[2020-10-14 13:56] LABS: BASO % 0.6 % (0-2.0); EOS % 0.7 % (0-4.5); HEMATOCRIT 44.8 % (32.4-45.2); HEMOGLOBIN 15.1 GM/dL (10.7-15.3); MCH 29.7 pg (25.7-33.7); MCHC 33.6 g/dl (32.0-36.0); MEAN CELL VOLUME 88.2 fl (80-96); MEAN PLT VOLUME 8.4 fl (7.5-11.1); NEUT % 70.7 % (42.8-82.8); PLATELET COUNT 320 K/MM3 (134-434); RBC 5.08 M/mm3 (3.60-5.2); RDW 14.3 % (11.6-15.6); WHITE BLOOD COUNT 7.5 K/mm3 (4.0-10.0)
[2020-10-14 13:57] LABS: URINE APPEARANCE CLEAR; URINE BILIRUBIN NEGATIVE (NEGATIVE); URINE COLOR YELLOW; URINE GLUCOSE (UA) NEGATIVE (NEGATIVE); URINE KETONE NEGATIVE (NEGATIVE); URINE LEUK ESTERASE NEGATIVE (NEGATIVE); URINE NITRITE NEGATIVE (NEGATIVE); URINE PROTEIN NEGATIVE (NEGATIVE); URINE UROBILINOGEN 0.2 mg/dL (0.2-1.0)
[2020-10-14 14:22] LABS: ALBUMIN 4.1 g/dl (3.4-5.0)
[2020-10-14 14:23] LABS: CALCIUM 10.9 mg/dL (8.5-10.1)
[2020-10-14 14:26] LABS: CREATININE 0.7 mg/dL (0.55-1.3)
[2020-10-14 14:28] LABS: BILIRUBIN,TOTAL 0.3 mg/dL (0.2-1); TOT PROT 7.5 g/dl (6.4-8.2)
[2020-10-14 16:03] VITALS: BP 138/70; PULSE 80
== END 2020-10-14 16:08 | disposition home or self-care (01) ==
LOC: JER 12:23
PROC: 3E0233Z Introduction of Anti-inflammatory into Muscle, Percutaneous Approach (ICD-10-PCS; principal; 2020-10-14)
PROC: 3E033NZ Introduction of Analgesics, Hypnotics, Sedatives into Peripheral Vein, Percutaneous Approach (ICD-10-PCS; 2020-10-14)
PROC: 3E033GC Introduction of Other Therapeutic Substance into Peripheral Vein, Percutaneous Approach (ICD-10-PCS; 2020-10-14)
DX: R10.84 Generalized abdominal pain (principal)
CPT/HCPCS: 36415; 74177-TC; 80053; 81003; 83690; 85025; 87086; 93005; 93010; 99285-25; J0131; Q9967

== ENCOUNTER 2020-12-26 01:04 | Emergency (ER) | payer OTHER ==
[2020-12-26 01:26] VITALS: BP 127/76; PULSE 78; TEMP 98.1; BMI 30.9
[2020-12-26] MEDS ORDERED: ACETAMINOPHEN 1000 MG/100 ML VIAL (NON FORMULARY) IVPB ONE (01:48)
[2020-12-26] MEDS ORDERED: METOCLOPRAMIDE HCL INJECTION 10 MG/2 ML VIAL IVPUSH ONE (01:49)
[2020-12-26] MEDS ORDERED: SODIUM CHLORIDE 1,000 ML IV STA (01:49)
[2020-12-26] MEDS ORDERED: ACETAMINOPHEN INJECTION 100 ML IVPB ONE (03:15)
[2020-12-26] MEDS ORDERED: METOCLOPRAMIDE HCL INJECTION 10 MG/2 ML VIAL ONE (03:15)
[2020-12-26] MEDS ORDERED: DEXAMETHASONE SOD PHOSPHATE 10 MG/1 ML VIAL IVPUSH ONE (04:14)
[2020-12-26] MEDS ORDERED: DEXAMETHASONE SOD PHOSPHATE 10 MG/1 ML VIAL ONE (04:20)
== END 2020-12-26 07:36 | disposition home or self-care (01) ==
LOC: JER 01:04
PROC: 3E033GC Introduction of Other Therapeutic Substance into Peripheral Vein, Percutaneous Approach (ICD-10-PCS; principal; 2020-12-26)
DX: R51.9 Headache, unspecified (principal)
CPT/HCPCS: 70450-TC; 99285-25; J0131; J1100

== ENCOUNTER 2021-03-24 21:26 | Emergency (ER) | payer OTHER ==
[2021-03-24 21:38] VITALS: BP 138/89; PULSE 86; TEMP 98.5; BMI 22.3
[2021-03-24] MEDS ORDERED: morphine SULFATE IMMEDIATE RELEASE 30 MG TAB PO ONE (22:17)
[2021-03-24] MEDS ORDERED: morphine SULFATE IMMEDIATE RELEASE 30 MG TAB ONE (22:27)
== END 2021-03-24 23:07 | disposition home or self-care (01) ==
LOC: JER 21:26
DX: M54.41 Lumbago with sciatica, right side (principal); M54.42 Lumbago with sciatica, left side
CPT/HCPCS: 99283-25

== ENCOUNTER 2023-06-14 21:59 | Observation (INO) | payer OTHER ==
[2023-06-14 22:13] VITALS: BMI 22.3
[2023-06-14] MEDS ORDERED: ALBUTEROL SO4 2.5/IPRATROPIUM 0.5 INH SOL 3 ML VIAL.NEB. NEB ONE (22:35)
[2023-06-14] MEDS ORDERED: methylPREDNISolone NA SUCC 125 MG/2 ML VIAL ONE (22:36)
[2023-06-14] MEDS: methylPREDNISolone NA SUCC 125 MG/2 ML VIAL IVPUSH ONE (22:59)
[2023-06-14] MEDS: ALBUTEROL SO4 2.5/IPRATROPIUM 0.5 INH SOL 3 ML VIAL.NEB. NEB SCH (22:59)
[2023-06-14 23:07] LABS: BASO % 0.8 % (0-2.0); EOS % 1.3 % (0-4.5); HEMATOCRIT 35.2 % (32.4-45.2); HEMOGLOBIN 11.6 GM/dL (10.7-15.3); LYMPH % 29.1 % (8-40); MCH 29.8 pg (25.7-33.7); MCHC 32.9 g/dl (32.0-36.0); MEAN CELL VOLUME 90.7 fl (80-96); MEAN PLT VOLUME 7.4 fl (7.5-11.1); MONO % 8.1 % (3.8-10.2); NEUT % 60.7 % (42.8-82.8); PLATELET COUNT 437 10^3/uL (134-434); RBC 3.89 M/mm3 (3.60-5.2); RDW 15.6 % (11.6-15.6); WHITE BLOOD COUNT 12.1 K/mm3 (4.0-10.0)
[2023-06-14 23:14] LABS: PROTHROMBIN TIME (PATIENT) 11.6 SEC (9.7-13.0)
[2023-06-14 23:16] LABS: VENOUS BASE EXCESS 0.8 mmol/L (-2-2); VENOUS O2 SATURATION 59.8 % (70-80); VENOUS PCO2 57.4 mmHg (38-52); VENOUS PH 7.309 (7.310-7.410)
[2023-06-14 23:17] LABS: ACTIVATED PTT 28.3 SECONDS (25.2-36.5)
[2023-06-14] MEDS ORDERED: clonazePAM 0.5 MG TABLET ONE (23:21)
[2023-06-14] MEDS: clonazePAM 0.5 MG TABLET PO ONE (23:24)
[2023-06-14 23:45] LABS: ALBUMIN 3.3 g/dl (3.4-5.0); BILIRUBIN,TOTAL 0.1 mg/dL (0.2-1); BLOOD UREA NITROGEN 55.8 mg/dL (7-18); CALCIUM 10.1 mg/dL (8.5-10.1); CREATININE 0.9 mg/dL (0.55-1.3); MAGNESIUM 1.9 mg/dL (1.8-2.4); POTASSIUM 5.4 mmol/L (3.5-5.1); TOT PROT 7.1 g/dl (6.4-8.2)
[2023-06-14] MEDS: SODIUM CHLORIDE 0.9% 500 ML INFUS.BAG IV ONE (23:49)
[2023-06-15] MEDS ORDERED: SIMETHICONE 80 MG TAB.CHEW (FP) ONE ×2 (00:06→20:23)
[2023-06-15] MEDS: SIMETHICONE 80 MG TAB.CHEW (FP) PO ONE (00:09)
[2023-06-15] MEDS ORDERED: VENLAFAXINE HCL 75 MG TABLET ONE (04:03)
[2023-06-15] MEDS: ACETAMINOPHEN 325 MG TABLET (FP) PO ONE (04:04)
[2023-06-15] MEDS: FAMOTIDINE 20 MG TABLET PO ONE (04:04)
[2023-06-15] MEDS ORDERED: VENLAFAXINE HCL 150 MG E.R. CAPSULE PO SCH (07:00)
[2023-06-15] MEDS: VENLAFAXINE HCL 75 MG E.R. CAPSULES PO SCH (07:07)
[2023-06-15 07:16] LABS: HEMATOCRIT 36.1 % (32.4-45.2); HEMOGLOBIN 11.7 GM/dL (10.7-15.3); MCH 29.3 pg (25.7-33.7); MCHC 32.4 g/dl (32.0-36.0); MEAN CELL VOLUME 90.3 fl (80-96); MEAN PLT VOLUME 7.7 fl (7.5-11.1); PLATELET COUNT 440 10^3/uL (134-434); RDW 15.4 % (11.6-15.6); WHITE BLOOD COUNT 10.8 K/mm3 (4.0-10.0)
[2023-06-15 09:00] LABS: ANISOCYTOSIS 0; MACROCYTOSIS 0
[2023-06-15] MEDS: PANTOPRAZOLE 40 MG TABLET PO SCH (09:42)
[2023-06-15] MEDS: ALBUTEROL SO4 2.5/IPRATROPIUM 0.5 INH SOL 3 ML VIAL.NEB. NEB SCH (09:42)
[2023-06-15] MEDS: ENOXAPARIN NA (PORCINE) 40 MG/0.4 ML DISP.SYRIN SQ SCH (09:43)
[2023-06-15] MEDS: POLYETHYLENE GLYCOL (HEALTHYLAX) 3350 17 GM PACKET PO SCH (09:43)
[2023-06-15] MEDS: NICOTINE 14 MG/24 HOURS TOPICAL PATCH TD SCH (09:43)
[2023-06-15] MEDS: lamoTRIgine 100 MG TABLET PO SCH (09:44)
[2023-06-15] MEDS: methylPREDNISolone NA SUCC 40 MG/1 ML VIAL IVPUSH SCH (09:44)
[2023-06-15] MEDS ORDERED: AZITHROMYCIN IVPB 500 MG/250 ML BAG IVPB ONE (09:47)
[2023-06-15] MEDS: AZITHROMYCIN IVPB 500 MG/250 ML BAG IVPB SCH (09:49)
[2023-06-15 11:03] LABS: POTASSIUM 5.4 mmol/L (3.5-5.1)
[2023-06-15 11:13] LABS: CALCIUM 9.8 mg/dL (8.5-10.1)
[2023-06-15 11:14] LABS: ALBUMIN 3.5 g/dl (3.4-5.0); BLOOD UREA NITROGEN 42.1 mg/dL (7-18)
[2023-06-15 11:15] LABS: BILIRUBIN,TOTAL 0.2 mg/dL (0.2-1)
[2023-06-15 11:17] LABS: CREATININE 0.8 mg/dL (0.55-1.3)
[2023-06-15] MEDS: SODIUM ZIRCONIUM CYCLOSILICATE (LOKELMA) 5 GM PACKET PO SCH (11:38)
[2023-06-15] MEDS ORDERED: SODIUM ZIRCONIUM CYCLOSILICATE (LOKELMA) 10 GM PACKET ONE (11:38)
[2023-06-15] MEDS ORDERED: clonazePAM 0.5 MG TABLET ONE ×2 (13:26→21:47)
[2023-06-15] MEDS: clonazePAM 0.5 MG TABLET PO PRN (13:27)
[2023-06-15] MEDS: FLUoxetine HCL 10 MG CAPSULE PO SCH (13:27)
[2023-06-15] MEDS ORDERED: ALBUTEROL SO4 0.083% IH SOL 2.5 MG/3 ML VIAL.NEB. NEB PRN (15:20)
[2023-06-15] MEDS: DICYCLOMINE HCL 10 MG CAPSULE PO PRN (15:21)
[2023-06-15] MEDS ORDERED: ALBUTEROL SO4 2.5/IPRATROPIUM 0.5 INH SOL 3 ML VIAL.NEB. NEB ONE (17:14)
[2023-06-15] MEDS: ALBUTEROL SO4 0.083% IH SOL 2.5 MG/3 ML VIAL.NEB. NEB SCH (17:55)
[2023-06-15] MEDS: FLUoxetine HCL 10 MG TABLET PO SCH (19:26)
[2023-06-15] MEDS: UMECLIDINIUM/VILANTEROL (ANORO) 62.5/25 MCG INHALER IH SCH (19:26)
[2023-06-15] MEDS ORDERED: ALBUTEROL SO4 0.083% IH SOL 2.5 MG/3 ML VIAL.NEB. NEB ONE (20:03)
[2023-06-15] MEDS ORDERED: DICYCLOMINE HCL 10 MG CAPSULE ONE (20:23)
[2023-06-15] MEDS: SIMETHICONE 80 MG TAB.CHEW (FP) PO PRN (20:27)
[2023-06-15] MEDS ORDERED: ACETAMINOPHEN 325 MG TABLET (FP) ONE (20:39)
[2023-06-15] MEDS: ACETAMINOPHEN 325 MG TABLET (FP) PO PRN (20:45)
[2023-06-15] MEDS ORDERED: ATORVASTATIN CA 20 MG TABLET (FP) ONE (21:47)
[2023-06-15] MEDS ORDERED: lamoTRIgine 100 MG TABLET ONE (21:47)
[2023-06-15] MEDS: ATORVASTATIN CA 20 MG TABLET (FP) PO SCH (21:54)
[2023-06-16] MEDS ORDERED: methylPREDNISolone NA SUCC 40 MG/1 ML VIAL ONE (02:16)
[2023-06-16] MEDS ORDERED: ACETAMINOPHEN 325 MG TABLET (FP) ONE (02:16)
[2023-06-16] MEDS ORDERED: SIMETHICONE 80 MG TAB.CHEW (FP) ONE (02:16)
[2023-06-16] MEDS ORDERED: MELATONIN 5 MG TABLETS PO PRN (03:24)
[2023-06-16 08:49] LABS: HEMATOCRIT 36.9 % (32.4-45.2); HEMOGLOBIN 12.1 GM/dL (10.7-15.3); MCH 29.4 pg (25.7-33.7); MCHC 32.8 g/dl (32.0-36.0); MEAN CELL VOLUME 89.8 fl (80-96); MEAN PLT VOLUME 7.6 fl (7.5-11.1); PLATELET COUNT 494 10^3/uL (134-434); RBC 4.11 M/mm3 (3.60-5.2); RDW 15.8 % (11.6-15.6); WHITE BLOOD COUNT 21.8 K/mm3 (4.0-10.0)
[2023-06-16 09:04] LABS: POTASSIUM 5.5 mmol/L (3.5-5.1)
[2023-06-16 09:10] LABS: CALCIUM 10.8 mg/dL (8.5-10.1)
[2023-06-16 09:11] LABS: ALBUMIN 3.5 g/dl (3.4-5.0); BLOOD UREA NITROGEN 28.8 mg/dL (7-18); MAGNESIUM 2.3 mg/dL (1.8-2.4)
[2023-06-16 09:14] LABS: CREATININE 0.7 mg/dL (0.55-1.3); PHOSPHOROUS 3.7 mg/dL (2.5-4.9)
[2023-06-16 09:15] LABS: BILIRUBIN,TOTAL 0.4 mg/dL (0.2-1); TOT PROT 7.4 g/dl (6.4-8.2)
[2023-06-16] MEDS: FLUTICASONE/UMECLIDIN/VILANTER(200-62.5-25 TRELEGY ELLIPTA) INAHLER IH SCH (10:05)
[2023-06-16] MEDS: FLU VACCINE (FLULAVAL) PF 60 MCG/0.5 ML SYRINGE 2023-2024 IM ONE (11:01)
[2023-06-16 11:21] LABS: EPI CELLS 23 /uL (0-25.1); HYALINE CASTS 0 /uL (0-3.1); URINE APPEARANCE CLEAR; URINE BACTERIA 330 /uL (0-1359); URINE BILIRUBIN NEGATIVE (NEGATIVE); URINE COLOR YELLOW; URINE GLUCOSE (UA) NEGATIVE (NEGATIVE); URINE KETONE NEGATIVE (NEGATIVE); URINE LEUK ESTERASE 1+ (NEGATIVE); URINE NITRITE NEGATIVE (NEGATIVE); URINE PROTEIN NEGATIVE (NEGATIVE); URINE RBC 4 /uL (0-23.9); URINE UROBILINOGEN 0.2 mg/dL (0.2-1.0); URINE WBC 19 /uL (0-25.8)
[2023-06-16] MEDS: SODIUM ZIRCONIUM CYCLOSILICATE (LOKELMA) 5 GM PACKET PO SCH (17:34)
[2023-06-16] MEDS: ACETAMINOPHEN/CAFFEINE/BUTALBITAL 1 TAB PO ONE (19:06)
[2023-06-16] MEDS: lamoTRIgine 100 MG TABLET PO SCH (21:49)
[2023-06-16] MEDS: clonazePAM 0.5 MG TABLET PO PRN (21:50)
[2023-06-16] MEDS: ATORVASTATIN CA 20 MG TABLET (FP) PO SCH (21:51)
[2023-06-17] MEDS: methylPREDNISolone NA SUCC 40 MG/1 ML VIAL IVPUSH SCH (03:06)
[2023-06-17] MEDS: PANTOPRAZOLE 40 MG TABLET PO SCH (06:23)
[2023-06-17] MEDS: VENLAFAXINE HCL 75 MG E.R. CAPSULES PO SCH (06:24)
[2023-06-17] MEDS: AZITHROMYCIN IVPB 500 MG/250 ML BAG IVPB SCH (09:09)
[2023-06-17] MEDS: NICOTINE 14 MG/24 HOURS TOPICAL PATCH TD SCH (09:09)
[2023-06-17] MEDS: POLYETHYLENE GLYCOL (HEALTHYLAX) 3350 17 GM PACKET PO SCH (09:09)
[2023-06-17] MEDS: ENOXAPARIN NA (PORCINE) 40 MG/0.4 ML DISP.SYRIN SQ SCH (09:09)
[2023-06-17] MEDS: ACETAMINOPHEN/CAFFEINE/BUTALBITAL 1 TAB PO PRN (09:10)
[2023-06-17 09:57] LABS: HEMATOCRIT 37.5 % (32.4-45.2); HEMOGLOBIN 11.9 GM/dL (10.7-15.3); MCH 28.6 pg (25.7-33.7); MCHC 31.9 g/dl (32.0-36.0); MEAN CELL VOLUME 89.6 fl (80-96); MEAN PLT VOLUME 7.7 fl (7.5-11.1); PLATELET COUNT 462 10^3/uL (134-434); RBC 4.18 M/mm3 (3.60-5.2); RDW 15.6 % (11.6-15.6)
[2023-06-17] MEDS ORDERED: SODIUM ZIRCONIUM CYCLOSILICATE (LOKELMA) 10 GM PACKET PO SCH (10:13)
[2023-06-17 10:16] LABS: POTASSIUM 4.6 mmol/L (3.5-5.1)
[2023-06-17 10:24] LABS: ALBUMIN 3.6 g/dl (3.4-5.0); BLOOD UREA NITROGEN 29.8 mg/dL (7-18); CALCIUM 10.2 mg/dL (8.5-10.1)
[2023-06-17] MEDS: SODIUM ZIRCONIUM CYCLOSILICATE (LOKELMA) 10 GM PACKET PO SCH (10:26)
[2023-06-17 10:27] LABS: CREATININE 0.8 mg/dL (0.55-1.3)
[2023-06-17 10:29] LABS: BILIRUBIN,TOTAL 0.4 mg/dL (0.2-1); TOT PROT 7.4 g/dl (6.4-8.2)
[2023-06-17 10:40] LABS: ANISOCYTOSIS 0; MACROCYTOSIS 0
[2023-06-17 10:48] LABS: PLATELET ESTIMATE ADEQUATE
[2023-06-17] MEDS: SODIUM CHLORIDE 1,000 ML IV SCH (14:15)
[2023-06-17] MEDS: SIMETHICONE 80 MG TAB.CHEW (FP) PO PRN (14:20)
[2023-06-17] MEDS: SUMAtriptan SUCCINATE 25 MG TABLET PO ONE (17:41)
[2023-06-17] MEDS: DICYCLOMINE HCL 10 MG CAPSULE PO PRN (22:36)
[2023-06-18 02:12] VITALS: RESP 18
[2023-06-18 07:36] VITALS: BP 130/83; PULSE 88; TEMP 97.7
[2023-06-18] MEDS: FLUoxetine HCL 20 MG CAPSULE PO SCH (09:09)
[2023-06-18 10:26] LABS: POTASSIUM 4.8 mmol/L (3.5-5.1)
[2023-06-18 10:29] LABS: CALCIUM 9.8 mg/dL (8.5-10.1)
[2023-06-18 10:30] LABS: ALBUMIN 3.3 g/dl (3.4-5.0); BLOOD UREA NITROGEN 21.2 mg/dL (7-18)
[2023-06-18 10:33] LABS: CREATININE 0.7 mg/dL (0.55-1.3)
[2023-06-18 10:35] LABS: BILIRUBIN,TOTAL 0.3 mg/dL (0.2-1); TOT PROT 7.1 g/dl (6.4-8.2)
== END 2023-06-18 11:37 | disposition home or self-care (01) ==
LOC: JER 21:59 → JERBED 23:53 → J8W 06-16 03:20
PROVIDERS: ADMIT Internal Medicine; ATTEND Nurse Practitioner Family
PROC: 3E0F7GC Introduction of Other Therapeutic Substance into Respiratory Tract, Via Natural or Artificial Opening (ICD-10-PCS; principal; 2023-06-14)
PROC: 3E03329 Introduction of Other Anti-infective into Peripheral Vein, Percutaneous Approach (ICD-10-PCS; 2023-06-14)
PROC: 3E023GC Introduction of Other Therapeutic Substance into Muscle, Percutaneous Approach (ICD-10-PCS; 2023-06-14)
PROC: 3E023GC Introduction of Other Therapeutic Substance into Muscle, Percutaneous Approach (ICD-10-PCS; 2023-06-14)
PROC: 3E0337Z Introduction of Electrolytic and Water Balance Substance into Peripheral Vein, Percutaneous Approach (ICD-10-PCS; 2023-06-14)
DX: J44.1 Chronic obstructive pulmonary disease with (acute) exacerbation (principal); E87.5 Hyperkalemia; N17.9 Acute kidney failure, unspecified; I10 Essential (primary) hypertension; E78.5 Hyperlipidemia, unspecified; Z29.89 Encounter for other specified prophylactic measures; K58.9 Irritable bowel syndrome, unspecified; G43.909 Migraine, unspecified, not intractable, without status migrainosus; G89.29 Other chronic pain; M54.9 Dorsalgia, unspecified; N20.0 Calculus of kidney; Z23 Encounter for immunization; F17.200 Nicotine dependence, unspecified, uncomplicated; Z88.8 Allergy status to other drugs, medicaments and biological substances
CPT/HCPCS: 0241U-QW; 36415; 71045-TC-FY; 80053; 81003; 82310; 82550; 82803; 83735; 83970; 84100; 84439; 84443; 84484; 85025; 85027; 85610; 85730; 90471; 90686; 93005; 93010; 94640; 94761; 96361; 96365; 96366; 96372; 96375; 96376; 99285-25; G0378

== ENCOUNTER 2023-11-14 16:12 | Observation (INO) | payer OTHER ==
[2023-11-14] MEDS ORDERED: ALBUTEROL SO4 2.5/IPRATROPIUM 0.5 INH SOL 3 ML VIAL.NEB. NEB ONE (17:17)
[2023-11-14 17:52] LABS: BASO % 0.2 % (0-2.0); HEMATOCRIT 36.4 % (32.4-45.2); HEMOGLOBIN 11.7 GM/dL (10.7-15.3); LYMPH % 11.1 % (8-40); MCH 26.1 pg (25.7-33.7); MCHC 32.3 g/dl (32.0-36.0); MEAN CELL VOLUME 80.9 fl (80-96); MEAN PLT VOLUME 7.9 fl (7.5-11.1); MONO % 5.4 % (3.8-10.2); NEUT % 83.3 % (42.8-82.8); PLATELET COUNT 312 10^3/uL (134-434); RDW 19.6 % (11.6-15.6); WHITE BLOOD COUNT 10.8 K/mm3 (4.0-10.0)
[2023-11-14] MEDS: ALBUTEROL SO4 2.5/IPRATROPIUM 0.5 INH SOL 3 ML VIAL.NEB. NEB SCH (18:00)
[2023-11-14 18:02] LABS: INR 0.96 (0.83-1.09); POTASSIUM 4.6 mmol/L (3.5-5.1); PROTHROMBIN TIME (PATIENT) 10.9 SEC (9.7-13.0)
[2023-11-14 18:04] LABS: CALCIUM 10.5 mg/dL (8.5-10.1)
[2023-11-14 18:05] LABS: ACTIVATED PTT 30.7 SECONDS (25.2-36.5); ALBUMIN 3.8 g/dl (3.4-5.0); BLOOD UREA NITROGEN 21.8 mg/dL (7-18)
[2023-11-14 18:08] LABS: CREATININE 0.8 mg/dL (0.55-1.3)
[2023-11-14 18:10] LABS: BILIRUBIN,TOTAL 0.2 mg/dL (0.2-1); TOT PROT 7.4 g/dl (6.4-8.2)
[2023-11-14] MEDS: MAGNESIUM SULF 50% (8.12 MEQ/2 ML-1 GM VIAL) IVPB ONE ×2 (18:15→18:54)
[2023-11-14] MEDS ORDERED: MAGNESIUM 1GM/D5W - 1 GM/100 ML IVPB IVPB ONE (18:30)
[2023-11-14] MEDS ORDERED: clonazePAM 0.5 MG TABLET ONE (20:13)
[2023-11-14] MEDS: clonazePAM 0.5 MG TABLET PO ONE (20:17)
[2023-11-14 23:25] VITALS: BMI 26.4
[2023-11-15] MEDS: AZITHROMYCIN 250 MG TABLET PO ONE (02:48)
[2023-11-15] MEDS: BUDESONIDE/FORMETEROL FUMARATE 160/4.5 mcg INHALER IH SCH (02:49)
[2023-11-15] MEDS: lamoTRIgine 100 MG TABLET PO SCH (02:49)
[2023-11-15] MEDS: oxyCODONE HCL 5 MG TABLET PO ONE (03:03)
[2023-11-15] MEDS: VENLAFAXINE HCL 75 MG E.R. CAPSULES PO SCH (06:33)
[2023-11-15] MEDS: PANTOPRAZOLE 40 MG TABLET PO SCH (06:34)
[2023-11-15] MEDS: clonazePAM 0.5 MG TABLET PO PRN (06:35)
[2023-11-15] MEDS: SIMETHICONE 80 MG TAB.CHEW (FP) PO PRN (06:35)
[2023-11-15] MEDS: ALBUTEROL SO4 2.5/IPRATROPIUM 0.5 INH SOL 3 ML VIAL.NEB. NEB SCH (07:28)
[2023-11-15] MEDS ORDERED: ACETAMINOPHEN 325 MG TABLET (FP) PO PRN (08:11)
[2023-11-15 09:54] LABS: HEMATOCRIT 37.2 % (32.4-45.2); HEMOGLOBIN 12.2 GM/dL (10.7-15.3); MCH 25.9 pg (25.7-33.7); MCHC 32.8 g/dl (32.0-36.0); MEAN CELL VOLUME 79.2 fl (80-96); MEAN PLT VOLUME 7.8 fl (7.5-11.1); PLATELET COUNT 341 10^3/uL (134-434); RDW 19.6 % (11.6-15.6); WHITE BLOOD COUNT 9.2 K/mm3 (4.0-10.0)
[2023-11-15 10:12] LABS: POTASSIUM 4.3 mmol/L (3.5-5.1)
[2023-11-15 10:15] LABS: CALCIUM 9.8 mg/dL (8.5-10.1)
[2023-11-15 10:16] LABS: ALBUMIN 3.6 g/dl (3.4-5.0); BLOOD UREA NITROGEN 17.4 mg/dL (7-18)
[2023-11-15 10:17] LABS: MAGNESIUM 2.1 mg/dL (1.8-2.4)
[2023-11-15 10:19] LABS: CREATININE 0.7 mg/dL (0.55-1.3)
[2023-11-15 10:20] LABS: BILIRUBIN,TOTAL 0.4 mg/dL (0.2-1); TOT PROT 7.2 g/dl (6.4-8.2)
[2023-11-15] MEDS: ENOXAPARIN NA (PORCINE) 40 MG/0.4 ML DISP.SYRIN SQ SCH (10:55)
[2023-11-15] MEDS: AZITHROMYCIN 250 MG TABLET PO SCH (10:56)
[2023-11-15] MEDS: methylPREDNISolone NA SUCC 40 MG/1 ML VIAL IVPUSH SCH (10:56)
[2023-11-15] MEDS: LISINOPRIL 20 MG TABLET PO SCH (10:58)
[2023-11-15] MEDS: oxyCODONE HCL 5 MG TABLET PO PRN (11:10)
[2023-11-15] MEDS: FLUoxetine HCL 20 MG CAPSULE PO SCH (11:11)
[2023-11-15] MEDS: NICOTINE 14 MG/24 HOURS TOPICAL PATCH TD SCH (16:49)
[2023-11-16] MEDS: predniSONE 20 MG TABLET (UD) PO SCH (09:09)
[2023-11-16 10:52] VITALS: BP 132/75; PULSE 94; RESP 18; TEMP 97.7
== END 2023-11-16 13:47 | disposition home or self-care (01) ==
LOC: JER 16:12 → JERBED 18:46 → J7W 21:33
PROVIDERS: ADMIT Internal Medicine; ATTEND Nurse Practitioner
PROC: 3E0F7GC Introduction of Other Therapeutic Substance into Respiratory Tract, Via Natural or Artificial Opening (ICD-10-PCS; principal; 2023-11-14)
PROC: 3E023GC Introduction of Other Therapeutic Substance into Muscle, Percutaneous Approach (ICD-10-PCS; 2023-11-14)
PROC: 3E033GC Introduction of Other Therapeutic Substance into Peripheral Vein, Percutaneous Approach (ICD-10-PCS; 2023-11-14)
DX: J44.1 Chronic obstructive pulmonary disease with (acute) exacerbation (principal); F31.9 Bipolar disorder, unspecified; F17.210 Nicotine dependence, cigarettes, uncomplicated; G89.29 Other chronic pain; F43.10 Post-traumatic stress disorder, unspecified; N20.0 Calculus of kidney
CPT/HCPCS: 0241U-QW; 36415; 71045-TC-FY; 80053; 83735; 84484; 85025; 85027; 85610; 85730; 93005; 93010; 94640; 96372; 96374; 96375; 96376; 99285-25; G0378

== ENCOUNTER 2023-12-28 05:01 | Observation (INO) | payer OTHER ==
[2023-12-28] MEDS: ALBUTEROL SO4 2.5/IPRATROPIUM 0.5 INH SOL 3 ML VIAL.NEB. NEB SCH ×3 (06:06→16:02)
[2023-12-28] MEDS ORDERED: ALBUTEROL SO4 2.5/IPRATROPIUM 0.5 INH SOL 3 ML VIAL.NEB. NEB ONE ×2 (06:06→08:03)
[2023-12-28 06:29] LABS: INR 0.88 (0.83-1.09); PROTHROMBIN TIME (PATIENT) 10.2 SEC (9.7-13.0)
[2023-12-28 06:32] LABS: ACTIVATED PTT 29.5 SECONDS (25.2-36.5)
[2023-12-28 06:39] LABS: POTASSIUM 4.7 mmol/L (3.5-5.1)
[2023-12-28 06:41] LABS: ALBUMIN 3.6 g/dl (3.4-5.0); BLOOD UREA NITROGEN 36.4 mg/dL (7-18); CALCIUM 10.6 mg/dL (8.5-10.1)
[2023-12-28 06:45] LABS: CREATININE 0.8 mg/dL (0.55-1.3)
[2023-12-28 06:46] LABS: BILIRUBIN,TOTAL 0.1 mg/dL (0.2-1); TOT PROT 7.1 g/dl (6.4-8.2)
[2023-12-28] MEDS ORDERED: ALBUTEROL SO4 HFA INHALER IH ONE (06:50)
[2023-12-28] MEDS: ALBUTEROL SO4 HFA INHALER IH ONE (06:54)
[2023-12-28 07:14] LABS: HEMATOCRIT 34.1 % (32.4-45.2); MCH 25.9 pg (25.7-33.7); MCHC 32.3 g/dl (32.0-36.0); MEAN CELL VOLUME 80.2 fl (80-96); MEAN PLT VOLUME 8.5 fl (7.5-11.1); PLATELET COUNT 360 10^3/uL (134-434); RBC 4.25 M/mm3 (3.60-5.2); RDW 18.6 % (11.6-15.6)
[2023-12-28] MEDS ORDERED: METOCLOPRAMIDE HCL INJECTION 10 MG/2 ML VIAL ONE (08:04)
[2023-12-28] MEDS ORDERED: ACETAMINOPHEN INJECTION 100 ML ONE (08:04)
[2023-12-28] MEDS: ACETAMINOPHEN 1000 MG/100 ML BAG IVPB ONE (08:24)
[2023-12-28] MEDS: SODIUM CHLORIDE 0.9% 500 ML INFUS.BAG IV ONE (08:24)
[2023-12-28] MEDS: ALBUTEROL SO4 2.5/IPRATROPIUM 0.5 INH SOL 3 ML VIAL.NEB. NEB ONE (08:24)
[2023-12-28] MEDS: METOCLOPRAMIDE HCL INJECTION 10 MG/2 ML VIAL IVPUSH ONE (08:24)
[2023-12-28 09:00] LABS: ANISOCYTOSIS 0; MACROCYTOSIS 0
[2023-12-28] MEDS ORDERED: LISINOPRIL 20 MG TABLET ONE (09:35)
[2023-12-28] MEDS ORDERED: clonazePAM 0.5 MG TABLET ONE (09:35)
[2023-12-28] MEDS ORDERED: PANTOPRAZOLE 40 MG TABLET PO ONE (09:35)
[2023-12-28] MEDS ORDERED: lamoTRIgine 100 MG TABLET ONE (09:35)
[2023-12-28] MEDS ORDERED: VENLAFAXINE HCL 75 MG TABLET ONE (09:35)
[2023-12-28] MEDS: PANTOPRAZOLE 40 MG TABLET PO ONE (09:44)
[2023-12-28] MEDS: clonazePAM 0.5 MG TABLET PO ONE (09:44)
[2023-12-28] MEDS: LISINOPRIL 20 MG TABLET PO ONE (09:44)
[2023-12-28] MEDS: VENLAFAXINE HCL 100 MG TABLET PO ONE (09:44)
[2023-12-28] MEDS: FLUoxetine HCL 20 MG CAPSULE PO ONE (09:44)
[2023-12-28] MEDS ORDERED: methylPREDNISolone NA SUCC 40 MG/1 ML VIAL ONE ×2 (11:43→22:16)
[2023-12-28] MEDS: methylPREDNISolone NA SUCC 125 MG/2 ML VIAL IVPB SCH (11:44)
[2023-12-28] MEDS ORDERED: methylPREDNISolone NA SUCC 40 MG/1 ML VIAL IVPB SCH (12:34)
[2023-12-28] MEDS: ALBUTEROL SO4 HFA INHALER IH PRN (14:36)
[2023-12-28] MEDS ORDERED: ACETAMINOPHEN 500 MG TABLET (FP) PO PRN (14:39)
[2023-12-28] MEDS ORDERED: ALBUTEROL SO4 2.5/IPRATROPIUM 0.5 INH SOL 3 ML VIAL.NEB. NEB PRN (14:39)
[2023-12-28 15:28] LABS: URINE APPEARANCE CLEAR; URINE BILIRUBIN NEGATIVE (NEGATIVE); URINE COLOR YELLOW; URINE GLUCOSE (UA) NEGATIVE (NEGATIVE); URINE KETONE NEGATIVE (NEGATIVE); URINE LEUK ESTERASE NEGATIVE (NEGATIVE); URINE NITRITE NEGATIVE (NEGATIVE); URINE PROTEIN NEGATIVE (NEGATIVE); URINE UROBILINOGEN 0.2 mg/dL (0.2-1.0)
[2023-12-28] MEDS: oxyCODONE HCL 5 MG TABLET PO ONE (15:52)
[2023-12-28] MEDS: KETOROLAC TROMETHAMINE 15 MG/ML VIAL IVPUSH ONE (17:31)
[2023-12-28] MEDS: SIMETHICONE 80 MG TAB.CHEW (FP) PO PRN (18:29)
[2023-12-28] MEDS: clonazePAM 0.5 MG TABLET PO PRN (20:30)
[2023-12-28] MEDS ORDERED: ATORVASTATIN CA 20 MG TABLET (FP) ONE (22:16)
[2023-12-28] MEDS ORDERED: HEPARIN NA (PORCINE) 5,000 UNITS/ML 1ML VIAL ONE (22:16)
[2023-12-28] MEDS ORDERED: oxyCODONE HCL 5 MG TABLET ONE (22:17)
[2023-12-28] MEDS: HEPARIN NA (PORCINE) 5,000 UNITS/ML 1ML VIAL SQ SCH (22:30)
[2023-12-28] MEDS: ATORVASTATIN CA 20 MG TABLET (FP) PO SCH (22:31)
[2023-12-28] MEDS: oxyCODONE HCL 5 MG TABLET PO PRN (22:31)
[2023-12-28] MEDS: methylPREDNISolone NA SUCC 40 MG/1 ML VIAL IVPUSH SCH (22:31)
[2023-12-28 22:32] VITALS: RESP 20
[2023-12-28 23:07] VITALS: BMI 27.8
[2023-12-29] MEDS ORDERED: VENLAFAXINE HCL 150 MG E.R. CAPSULE PO SCH (07:00)
[2023-12-29] MEDS: VENLAFAXINE HCL 75 MG E.R. CAPSULES PO SCH (07:08)
[2023-12-29 07:59] LABS: HEMOGLOBIN 10.8 GM/dL (10.7-15.3); MCH 25.7 pg (25.7-33.7); MCHC 31.7 g/dl (32.0-36.0); MEAN PLT VOLUME 8.2 fl (7.5-11.1); PLATELET COUNT 375 10^3/uL (134-434); RDW 18.5 % (11.6-15.6); WHITE BLOOD COUNT 16.4 K/mm3 (4.0-10.0)
[2023-12-29 08:06] LABS: POTASSIUM 5.3 mmol/L (3.5-5.1)
[2023-12-29 08:07] LABS: CALCIUM 10.3 mg/dL (8.5-10.1)
[2023-12-29 08:08] LABS: BLOOD UREA NITROGEN 23.4 mg/dL (7-18)
[2023-12-29 08:11] LABS: CREATININE 0.7 mg/dL (0.55-1.3)
[2023-12-29 09:41] LABS: ANISOCYTOSIS 0; HELMET CELLS 0; HOWELL-JOLLY BODIES 0; MACROCYTOSIS 0; OVALOCYTE 0; ROULEAU 0; SICKELED CELLS 0; TARGET CELLS 0; TEAR DROP CELLS 0; TOXIC GRANULATION 0
[2023-12-29] MEDS: predniSONE 20 MG TABLET (UD) PO ONE (11:37)
[2023-12-29] MEDS: LISINOPRIL 20 MG TABLET PO SCH (11:37)
[2023-12-29] MEDS: PANTOPRAZOLE 40 MG TABLET PO SCH (11:37)
[2023-12-29] MEDS: lamoTRIgine 100 MG TABLET PO SCH (11:38)
[2023-12-29] MEDS: FLUoxetine HCL 20 MG CAPSULE PO SCH (12:42)
[2023-12-29 14:41] VITALS: BP 156/79; PULSE 101; TEMP 98.1
== END 2023-12-29 16:13 | disposition home or self-care (01) ==
LOC: JER 05:01 → JERBED 11:06 → J7W 22:59
PROVIDERS: ADMIT Internal Medicine; ATTEND Internal Medicine
PROC: 3E033NZ Introduction of Analgesics, Hypnotics, Sedatives into Peripheral Vein, Percutaneous Approach (ICD-10-PCS; principal; 2023-12-28)
PROC: 3E0F7GC Introduction of Other Therapeutic Substance into Respiratory Tract, Via Natural or Artificial Opening (ICD-10-PCS; 2023-12-28)
PROC: 3E023GC Introduction of Other Therapeutic Substance into Muscle, Percutaneous Approach (ICD-10-PCS; 2023-12-28)
PROC: 3E033GC Introduction of Other Therapeutic Substance into Peripheral Vein, Percutaneous Approach (ICD-10-PCS; 2023-12-28)
PROC: 3E0337Z Introduction of Electrolytic and Water Balance Substance into Peripheral Vein, Percutaneous Approach (ICD-10-PCS; 2023-12-28)
DX: J44.1 Chronic obstructive pulmonary disease with (acute) exacerbation (principal); F31.9 Bipolar disorder, unspecified; F41.9 Anxiety disorder, unspecified; J44.9 Chronic obstructive pulmonary disease, unspecified; K59.00 Constipation, unspecified; Z88.8 Allergy status to other drugs, medicaments and biological substances; F17.200 Nicotine dependence, unspecified, uncomplicated
CPT/HCPCS: 0241U-QW; 36415; 71045-TC-FY; 80048; 80053; 81003; 84484; 85025; 85610; 85730; 87086; 93005; 93010; 94640; 96372; 96374; 96375; 99285-25; G0378; J0131; J1644

== ENCOUNTER 2024-01-23 21:55 | Emergency (ER) | payer OTHER ==
[2024-01-23 22:26] VITALS: BP 113/80; PULSE 114; RESP 18; TEMP 98.6; BMI 27.4
[2024-01-23] MEDS: ALBUTEROL SO4 2.5/IPRATROPIUM 0.5 INH SOL 3 ML VIAL.NEB. NEB SCH (22:30)
[2024-01-23] MEDS ORDERED: ONDANSETRON 4 MG/2 ML VIAL ONE (22:31)
[2024-01-23] MEDS ORDERED: ALBUTEROL SO4 2.5/IPRATROPIUM 0.5 INH SOL 3 ML VIAL.NEB. NEB ONE (22:31)
[2024-01-23] MEDS: ONDANSETRON 4 MG/2 ML VIAL IVPUSH ONE (22:51)
[2024-01-23 22:59] LABS: MCH 25.5 pg (25.7-33.7); MEAN CELL VOLUME 79.8 fl (80-96); PH,URINE 6.5 (5.0-8.0); PLATELET COUNT 317 10^3/uL (134-434); URINE APPEARANCE CLEAR; URINE BILIRUBIN NEGATIVE (NEGATIVE); URINE COLOR YELLOW; URINE GLUCOSE (UA) NEGATIVE (NEGATIVE); URINE KETONE TRACE (NEGATIVE); URINE LEUK ESTERASE NEGATIVE (NEGATIVE); URINE NITRITE NEGATIVE (NEGATIVE); URINE PROTEIN NEGATIVE (NEGATIVE); WHITE BLOOD COUNT 5.3 K/mm3 (4.0-10.0)
[2024-01-23 23:22] LABS: HEMATOCRIT 38.6 % (32.4-45.2); HEMOGLOBIN 12.3 GM/dL (10.7-15.3); MEAN PLT VOLUME 8.2 fl (7.5-11.1); RBC 4.84 M/mm3 (3.60-5.2); RDW 17.7 % (11.6-15.6)
[2024-01-23 23:25] LABS: POTASSIUM 4.7 mmol/L (3.5-5.1)
[2024-01-23 23:27] LABS: CALCIUM 9.9 mg/dL (8.5-10.1)
[2024-01-23 23:28] LABS: ALBUMIN 3.7 g/dl (3.4-5.0); BLOOD UREA NITROGEN 18.3 mg/dL (7-18); MAGNESIUM 1.9 mg/dL (1.8-2.4)
[2024-01-23 23:31] LABS: CREATININE 0.9 mg/dL (0.55-1.3)
[2024-01-23 23:32] LABS: BILIRUBIN,TOTAL 0.2 mg/dL (0.2-1)
[2024-01-23 23:36] LABS: N-TERMINAL BNP 31.3 pg/ml (5-125)
[2024-01-24] MEDS ORDERED: ACETAMINOPHEN INJECTION 100 ML ONE (00:05)
[2024-01-24] MEDS ORDERED: MAGNESIUM 1GM/D5W - 1 GM/100 ML IVPB IVPB ONE (00:05)
[2024-01-24] MEDS ORDERED: LIDOCAINE 4% PATCH TP ONE (00:05)
[2024-01-24] MEDS ORDERED: METHOCARBAMOL 500 MG TABLET ONE (00:05)
[2024-01-24] MEDS ORDERED: methylPREDNISolone NA SUCC 125 MG/2 ML VIAL ONE (00:05)
[2024-01-24] MEDS: ACETAMINOPHEN 1000 MG/100 ML BAG IVPB ONE (00:13)
[2024-01-24] MEDS: LIDOCAINE 4% PATCH TP ONE (00:13)
[2024-01-24] MEDS: methylPREDNISolone NA SUCC 125 MG/2 ML VIAL IVPB ONE (00:13)
[2024-01-24] MEDS: METHOCARBAMOL 500 MG TABLET PO ONE (00:13)
[2024-01-24] MEDS: LIDOCAINE PATCH REMOVAL MC SCH (00:13)
[2024-01-24 00:15] LABS: HIV INTERPRETATION NEGATIVE (NEGATIVE)
[2024-01-24] MEDS: MAGNESIUM 1GM/D5W - 1 GM/100 ML IVPB IVPB ONE (00:35)
[2024-01-24 00:58] LABS: VENOUS BASE EXCESS -0.7 mmol/L (-2-2); VENOUS O2 SATURATION 44.7 % (70-80); VENOUS PCO2 51.1 mmHg (38-52); VENOUS PH 7.323 (7.310-7.410)
[2024-01-24] MEDS ORDERED: LIDOCAINE PATCH REMOVAL MC ONE (12:00)
== END 2024-01-24 02:09 | disposition home or self-care (01) ==
LOC: JER 21:55
PROC: 3E033GC Introduction of Other Therapeutic Substance into Peripheral Vein, Percutaneous Approach (ICD-10-PCS; principal; 2024-01-23)
PROC: 3E033GC Introduction of Other Therapeutic Substance into Peripheral Vein, Percutaneous Approach (ICD-10-PCS; 2024-01-23)
PROC: 3E033GC Introduction of Other Therapeutic Substance into Peripheral Vein, Percutaneous Approach (ICD-10-PCS; 2024-01-23)
PROC: 3E0F7GC Introduction of Other Therapeutic Substance into Respiratory Tract, Via Natural or Artificial Opening (ICD-10-PCS; 2024-01-23)
DX: R06.02 Shortness of breath (principal); R11.2 Nausea with vomiting, unspecified; R35.0 Frequency of micturition; R30.0 Dysuria; M54.30 Sciatica, unspecified side; R00.0 Tachycardia, unspecified; Z20.822 Contact with and (suspected) exposure to COVID-19
CPT/HCPCS: 0241U-QW; 36415; 71045-TC-FY; 80053; 81003; 82803; 83735; 83880; 84484; 85027; 86803; 87086; 87389; 93005; 93010; 99285-25; J0131

== ENCOUNTER 2024-02-08 12:29 | Emergency (ER) | payer OTHER ==
[2024-02-08 12:55] VITALS: TEMP 98.3; BMI 25.7
[2024-02-08] MEDS ORDERED: LIDOCAINE 5% TOPICAL PATCH ONE (15:51)
[2024-02-08] MEDS ORDERED: oxyCODONE HCL 5 MG TABLET ONE ×2 (15:51→20:33)
[2024-02-08] MEDS: LIDOCAINE 5% TOPICAL PATCH TP ONE (15:56)
[2024-02-08] MEDS: oxyCODONE HCL 5 MG TABLET PO ONE ×2 (15:58→20:37)
[2024-02-08 21:30] VITALS: BP 165/87; PULSE 99; RESP 16
[2024-02-08] MEDS ORDERED: LIDOCAINE PATCH REMOVAL MC SCH (22:00)
== END 2024-02-08 21:25 | disposition home or self-care (01) ==
LOC: JER 12:29
DX: R07.89 Other chest pain (principal); R06.02 Shortness of breath; J44.9 Chronic obstructive pulmonary disease, unspecified; W22.8XXA Striking against or struck by other objects, initial encounter
CPT/HCPCS: 71046-TC-FY; 71250-TC; 99284-25

== ENCOUNTER 2024-03-29 02:37 | Inpatient (IN) | payer OTHER ==
[2024-03-29] MEDS ORDERED: ALBUTEROL SO4 2.5/IPRATROPIUM 0.5 INH SOL 3 ML VIAL.NEB. NEB ONE ×2 (03:22→04:56)
[2024-03-29] MEDS ORDERED: methylPREDNISolone NA SUCC 125 MG/2 ML VIAL ONE (03:22)
[2024-03-29] MEDS: ALBUTEROL SO4 2.5/IPRATROPIUM 0.5 INH SOL 3 ML VIAL.NEB. NEB ONE ×2 (04:01→05:08)
[2024-03-29 04:08] LABS: BASO % 0.3 % (0-2.0); EOS % 0.6 % (0-4.5); HEMATOCRIT 35.1 % (32.4-45.2); HEMOGLOBIN 11.1 GM/dL (10.7-15.3); LYMPH % 18.6 % (8-40); MCH 24.8 pg (25.7-33.7); MCHC 31.6 g/dl (32.0-36.0); MEAN CELL VOLUME 78.4 fl (80-96); MEAN PLT VOLUME 8.6 fl (7.5-11.1); MONO % 8.9 % (3.8-10.2); NEUT % 71.6 % (42.8-82.8); PLATELET COUNT 369 10^3/uL (134-434); RBC 4.48 M/mm3 (3.60-5.2); RDW 19.1 % (11.6-15.6); WHITE BLOOD COUNT 10.8 K/mm3 (4.0-10.0)
[2024-03-29 04:10] LABS: VENOUS BASE EXCESS 1.9 mmol/L (-2-2); VENOUS O2 SATURATION 32.9 % (70-80); VENOUS PCO2 69.6 mmHg (38-52); VENOUS PH 7.261 (7.310-7.410)
[2024-03-29] MEDS: methylPREDNISolone NA SUCC 125 MG/2 ML VIAL IVPB ONE (04:17)
[2024-03-29 04:28] LABS: CHLORIDE 103 mmol/L (98-107); SODIUM 136 mmol/L (136-145)
[2024-03-29 04:29] LABS: CALCIUM 9.9 mg/dL (8.5-10.1)
[2024-03-29 04:30] LABS: ALBUMIN 3.7 g/dl (3.4-5.0); BLOOD UREA NITROGEN 13.9 mg/dL (7-18); CO2 30 mmol/L (21-32); GLUCOSE,RANDOM 93 mg/dL (74-106); MAGNESIUM 2.3 mg/dL (1.8-2.4)
[2024-03-29 04:33] LABS: CREATININE 0.7 mg/dL (0.55-1.3); SGOT/AST 68 U/L (15-37)
[2024-03-29 04:35] LABS: BILIRUBIN,TOTAL 0.3 mg/dL (0.2-1); TOT PROT 7.9 g/dl (6.4-8.2)
[2024-03-29 04:36] LABS: ALK PHOS 144 U/L (45-117)
[2024-03-29] MEDS ORDERED: METOCLOPRAMIDE HCL INJECTION 10 MG/2 ML VIAL ONE (04:39)
[2024-03-29] MEDS: ACETAMINOPHEN 1000 MG/100 ML BAG IVPB ONE (05:00)
[2024-03-29] MEDS: METOCLOPRAMIDE HCL INJECTION 10 MG/2 ML VIAL IVPUSH ONE (05:07)
[2024-03-29] MEDS ORDERED: ACETAMINOPHEN INJECTION 100 ML ONE (05:12)
[2024-03-29] MEDS ORDERED: ALBUTEROL SO4 2.5/IPRATROPIUM 0.5 INH SOL 3 ML VIAL.NEB. NEB PRN (05:17)
[2024-03-29] MEDS ORDERED: AZITHROMYCIN 250 MG TABLET ONE (05:31)
[2024-03-29] MEDS ORDERED: CEFTRIAXONE 1 G/50 ML PREMIX 50 ML IVPB ONE (05:32)
[2024-03-29 05:44] LABS: ANION GAP 4 mmol/L (4-13); POTASSIUM 6.8 mmol/L (3.5-5.1); SGPT/ALT 45 U/L (13-61)
[2024-03-29] MEDS ORDERED: clonazePAM 1 MG ODT TABLETS SL PRN (06:08)
[2024-03-29] MEDS: AZITHROMYCIN 250 MG TABLET PO ONE (06:11)
[2024-03-29] MEDS: CEFTRIAXONE 1,000 MG in DEXTROSE 5%-WATER - 50 ML IVPB ONE (06:11)
[2024-03-29 06:16] LABS: VENOUS O2 SATURATION 44.1 % (70-80); VENOUS PCO2 56.9 mmHg (38-52); VENOUS PH 7.256 (7.310-7.410)
[2024-03-29 07:19] LABS: POTASSIUM 4.2 mmol/L (3.5-5.1)
[2024-03-29 07:21] LABS: ALBUMIN 3.7 g/dl (3.4-5.0); BLOOD UREA NITROGEN 13.3 mg/dL (7-18); CALCIUM 9.9 mg/dL (8.5-10.1); MAGNESIUM 2.2 mg/dL (1.8-2.4)
[2024-03-29 07:24] LABS: CREATININE 0.7 mg/dL (0.55-1.3)
[2024-03-29 07:26] LABS: BILIRUBIN,TOTAL 0.2 mg/dL (0.2-1); TOT PROT 7.1 g/dl (6.4-8.2)
[2024-03-29 08:26] LABS: BASO % 0.2 % (0-2.0); EOS % 0.1 % (0-4.5); HEMATOCRIT 36.6 % (32.4-45.2); LYMPH % 8.6 % (8-40); MCH 24.4 pg (25.7-33.7); MCHC 30.1 g/dl (32.0-36.0); MEAN CELL VOLUME 81.2 fl (80-96); MEAN PLT VOLUME 8.6 fl (7.5-11.1); MONO % 3.2 % (3.8-10.2); NEUT % 87.9 % (42.8-82.8); PLATELET COUNT 343 10^3/uL (134-434); RDW 18.9 % (11.6-15.6); WHITE BLOOD COUNT 12.3 K/mm3 (4.0-10.0)
[2024-03-29] MEDS: VENLAFAXINE HCL 75 MG E.R. CAPSULES PO SCH (08:30)
[2024-03-29] MEDS ORDERED: VENLAFAXINE HCL 75 MG TABLET ONE (08:49)
[2024-03-29] MEDS: POLYETHYLENE GLYCOL (HEALTHYLAX) 3350 17 GM PACKET PO SCH (10:40)
[2024-03-29] MEDS: ENOXAPARIN NA (PORCINE) 40 MG/0.4 ML DISP.SYRIN SQ SCH (10:40)
[2024-03-29] MEDS: lamoTRIgine 100 MG TABLET PO SCH (10:40)
[2024-03-29] MEDS: PANTOPRAZOLE 40 MG TABLET PO SCH (10:41)
[2024-03-29] MEDS: NICOTINE 14 MG/24 HOURS TOPICAL PATCH TD SCH (10:41)
[2024-03-29] MEDS: LISINOPRIL 20 MG TABLET PO SCH (10:41)
[2024-03-29] MEDS: methylPREDNISolone NA SUCC 40 MG/1 ML VIAL IVPUSH SCH ×2 (10:42→17:38)
[2024-03-29] MEDS: ALBUTEROL SO4 2.5/IPRATROPIUM 0.5 INH SOL 3 ML VIAL.NEB. NEB SCH (11:12)
[2024-03-29 11:15] VITALS: BMI 27.7
[2024-03-29] MEDS: FLUoxetine HCL 20 MG CAPSULE PO SCH (11:33)
[2024-03-29] MEDS: BUDESONIDE/FORMETEROL FUMARATE 160/4.5 mcg INHALER IH SCH (11:34)
[2024-03-29] MEDS: clonazePAM 0.25 MG ODT TABLETS SL PRN (12:40)
[2024-03-29] MEDS: FLUTICASONE/UMECLIDIN/VILANTER(200-62.5-25 TRELEGY ELLIPTA) INAHLER IH SCH (13:03)
[2024-03-29] MEDS: ACETAMINOPHEN 1000 MG/100 ML BAG IVPB PRN (13:50)
[2024-03-29] MEDS ORDERED: IBUPROFEN 600 MG TABLET (FP) PO PRN (16:25)
[2024-03-29] MEDS ORDERED: ACETAMINOPHEN/CAFFEINE/BUTALBITAL 1 TAB PO PRN (16:42)
[2024-03-29] MEDS: oxyCODONE HCL 5 MG TABLET PO ONE (17:36)
[2024-03-29] MEDS: SIMETHICONE 80 MG TAB.CHEW (FP) PO PRN (17:53)
[2024-03-29] MEDS: ATORVASTATIN CA 20 MG TABLET (FP) PO SCH (21:58)
[2024-03-29] MEDS: MONTELUKAST NA 10 MG TABLET PO SCH (21:58)
[2024-03-29 22:30] VITALS: RESP 18
[2024-03-30] MEDS: oxyCODONE HCL 5 MG TABLET PO ONE (02:00)
[2024-03-30 08:36] LABS: HEMATOCRIT 35.2 % (32.4-45.2); HEMOGLOBIN 10.9 GM/dL (10.7-15.3); MCH 24.5 pg (25.7-33.7); MCHC 30.9 g/dl (32.0-36.0); MEAN CELL VOLUME 79.4 fl (80-96); MEAN PLT VOLUME 8.8 fl (7.5-11.1); PLATELET COUNT 373 10^3/uL (134-434); RBC 4.43 M/mm3 (3.60-5.2); RDW 18.7 % (11.6-15.6); WHITE BLOOD COUNT 15.5 K/mm3 (4.0-10.0)
[2024-03-30 09:04] LABS: POTASSIUM 4.8 mmol/L (3.5-5.1)
[2024-03-30 09:26] LABS: BLOOD UREA NITROGEN 17.6 mg/dL (7-18); CREATININE 0.7 mg/dL (0.55-1.3)
[2024-03-30 09:27] LABS: ALBUMIN 3.6 g/dl (3.4-5.0); CALCIUM 10.6 mg/dL (8.5-10.1)
[2024-03-30 09:28] LABS: MAGNESIUM 2.2 mg/dL (1.8-2.4)
[2024-03-30 09:34] LABS: BILIRUBIN,TOTAL 0.3 mg/dL (0.2-1)
[2024-03-30] MEDS: NICOTINE 21 MG/24 HOURS TOPICAL PATCH TD SCH (10:30)
[2024-03-30] MEDS: methylPREDNISolone NA SUCC 40 MG/1 ML VIAL IVPUSH SCH (10:46)
[2024-03-30] MEDS: oxyCODONE HCL 5 MG TABLET PO PRN (10:47)
[2024-03-30 11:07] LABS: ANISOCYTOSIS 0; HELMET CELLS 0; HOWELL-JOLLY BODIES 0; MACROCYTOSIS 0; OVALOCYTE 0; ROULEAU 0; SICKELED CELLS 0; TARGET CELLS 0; TEAR DROP CELLS 0; TOXIC GRANULATION 0
[2024-03-31 10:14] LABS: BASO % 0.1 % (0-2.0); HEMATOCRIT 35.9 % (32.4-45.2); HEMOGLOBIN 11.1 GM/dL (10.7-15.3); LYMPH % 6.5 % (8-40); MCH 24.4 pg (25.7-33.7); MCHC 30.8 g/dl (32.0-36.0); MEAN CELL VOLUME 79.1 fl (80-96); MEAN PLT VOLUME 8.6 fl (7.5-11.1); NEUT % 87.4 % (42.8-82.8); PLATELET COUNT 440 10^3/uL (134-434); RBC 4.53 M/mm3 (3.60-5.2); RDW 18.7 % (11.6-15.6); WHITE BLOOD COUNT 14.4 K/mm3 (4.0-10.0)
[2024-03-31 10:31] LABS: POTASSIUM 4.1 mmol/L (3.5-5.1)
[2024-03-31 10:33] VITALS: BP 138/82; PULSE 95; TEMP 97.8
[2024-03-31 10:34] LABS: ALBUMIN 3.6 g/dl (3.4-5.0); BLOOD UREA NITROGEN 23.3 mg/dL (7-18); CALCIUM 10.6 mg/dL (8.5-10.1); MAGNESIUM 2.3 mg/dL (1.8-2.4)
[2024-03-31 10:38] LABS: CREATININE 0.9 mg/dL (0.55-1.3)
[2024-03-31 10:48] LABS: BILIRUBIN,TOTAL 0.3 mg/dL (0.2-1)
== END 2024-03-31 13:38 | disposition home or self-care (01) | DRG 192 ==
LOC: JER 02:37 → JERBED 05:24 → OBSVTOIN 09:27 → J7W 09:54
PROVIDERS: ADMIT Student in an Organized Health Care Education/Training Program; ATTEND Nurse Practitioner Acute Care
DX: J44.1 Chronic obstructive pulmonary disease with (acute) exacerbation (principal); I10 Essential (primary) hypertension; E78.5 Hyperlipidemia, unspecified; F32.A Depression, unspecified; F41.9 Anxiety disorder, unspecified; F43.10 Post-traumatic stress disorder, unspecified; K58.9 Irritable bowel syndrome, unspecified; K59.09 Other constipation; F17.210 Nicotine dependence, cigarettes, uncomplicated; J43.2 Centrilobular emphysema
CPT/HCPCS: 0241U-QW; 36415; 71045-TC-FY; 80053; 82803; 83735; 85025; 93005; 93010; 94640; 99285-25; G0378; J0131

== ENCOUNTER 2024-08-22 13:53 | Emergency (ER) | payer OTHER ==
[2024-08-22 14:05] VITALS: BP 133/88; PULSE 91; RESP 16; TEMP 98.4; BMI 26.7
[2024-08-22] MEDS ORDERED: ACETAMINOPHEN 500 MG TABLET (FP) ONE (16:06)
[2024-08-22] MEDS ORDERED: DIPHTH,PERTUSS(ACELL),TET 0.5 ML DISP.SYRIN IM ONE (16:07)
[2024-08-22] MEDS: DIPHTH,PERTUSS(ACELL),TET 0.5 ML DISP.SYRIN IM ONE (16:15)
[2024-08-22] MEDS: ACETAMINOPHEN 500 MG TABLET (FP) PO ONE (16:21)
== END 2024-08-22 17:05 | disposition home or self-care (01) ==
LOC: JER 13:53
PROC: 3E0234Z Introduction of Serum, Toxoid and Vaccine into Muscle, Percutaneous Approach (ICD-10-PCS; principal; 2024-08-22)
DX: S51.012A Laceration without foreign body of left elbow, initial encounter (principal); Z23 Encounter for immunization; W01.0XXA Fall on same level from slipping, tripping and stumbling without subsequent striking against object, initial encounter
CPT/HCPCS: 73070-TC-LT-FY; 90471; 90715; 99284-25